=== PATIENT | male | born 1940 | race Caucasian/White ===

== ENCOUNTER 2018-02-16 11:18 | Emergency (ER) | payer SELFPAY ==
[2018-02-16 11:45] VITALS: BP 180/103; PULSE 78; TEMP 97.8; BMI 32.5
--- NOTE | 2018-02-16 13:00 | PDOC ---
History of Present Illness - General Chief Complaint: Urinary Catheter Problem Stated Complaint: URINARY CATHETER PROBLEM Time Seen by Provider: 02/16/18 12:27 History Source: Patient Exam Limitations: Language Barrier (Phone court interpreter used) - History of Present Illness Initial Comments: 02/16/18 12:50 Patient is a 77M with history of HTN and HLD coming in today complaining of leaking from his urinary catheter bag that started this morning. Patient had a eason placed by Dr Isaac for urinary retention and is scheduled for surgery on Mar 09. Patient's daughter states that they went to their urologist's office today and sent to the ED because the urologist was not there. Denies fevers, chills, nausea, vomiting. Denies abdominal and chest pain. Denies headache. Past History - Past Medical History Allergies/Adverse Reactions: Allergies Allergy/AdvReac Type Severity Reaction Status Date / Time No Known Allergies Allergy Verified 02/16/18 11:41 - Suicide/Smoking/Psychosocial Hx Smoking History: Unknown if ever smoked Review of Systems - Review of Systems Comments:: 02/16/18 13:01 GENERAL/CONSTITUTIONAL: No fever or chills. No weakness. HEAD, EYES, EARS, NOSE AND THROAT: No change in vision. No sore throat. CARDIOVASCULAR: No chest pain or shortness of breath RESPIRATORY: No cough, wheezing, or hemoptysis. GASTROINTESTINAL: No nausea, vomiting, diarrhea or constipation. GENITOURINARY: +urinary retention, +eason placed MUSCULOSKELETAL: No joint or muscle swelling or pain. No neck or back pain. SKIN: No rash NEUROLOGIC: No headache, vertigo, loss of consciousness, or change in strength/ sensation. ENDOCRINE: No increased thirst. No abnormal weight change HEMATOLOGIC/LYMPHATIC: No anemia, easy bleeding, or history of blood clots. ALLERGIC/IMMUNOLOGIC: No hives or skin allergy. *Physical Exam - Vital Signs Last Vital Signs Temp Pulse Resp BP Pulse Ox 97.8 F 78 22 H 180/103 H 97 02/16/18 11:44 02/16/18 11:44 02/16/18 11:44 02/16/18 11:44 02/16/18 11:44 - Physical Exam Comments: 02/16/18 13:01 GENERAL: Awake, alert, and fully oriented, in no acute distress HEAD: No signs of trauma, normocephalic, atraumatic EYES: PERRLA, EOMI, sclera anicteric, conjunctiva clear ENT: Auricles normal inspection, hearing grossly normal, nares patent, oropharynx clear without exudates. Moist mucosa NECK: Normal ROM, supple, no lymphadenopathy, JVD, or masses LUNGS: No distress, speaks full sentences, clear to auscultation bilaterally HEART: Regular rate and rhythm, normal S1 and S2, no murmurs, rubs or gallops, peripheral pulses normal and equal bilaterally. ABDOMEN: Soft, nontender, normoactive bowel sounds. No guarding, no rebound. No masses EXTREMITIES: Normal inspection, Normal range of motion, no edema. No clubbing or cyanosis. NEUROLOGICAL: Cranial nerves II through XII grossly intact. Normal speech, normal gait, no focal sensorimotor deficits SKIN: Warm, Dry, normal turgor, no rashes or lesions noted. : Normal external genitalia, eason placed appropriately, draining urine. Urine leaking from bottom of bag. Medical Decision Making - Medical Decision Making 02/16/18 13:02 Patient is 77M with history of HTN and HLD here today complaining of leaking of urine from his leg bag. Vital signs notable for HTN, but asymptomatic. Will have patient follow up with PMD. Bag changed, urine draining. Will discharge with urology and PMD follow up. *DC/Admit/Observation/Transfer Diagnosis at time of Disposition: Problem with urinary catheter - Discharge Dispostion Disposition: HOME Condition at time of disposition: Good Decision to Admit order: No - Referrals Referrals: Los Isaac MD [Primary Care Provider] - - Patient Instructions Printed Discharge Instructions: How to Care for Your Eason Catheter -- Male Additional Instructions: Tu presin sangunea se encontr erna hoy. Por favor, consulte con farris mdico de atencin primaria con respecto a farris presin arterial erna. Por favor noel un seguimiento con farris urlogo con respecto a farris catter de eason - Post Discharge Activity
--- NOTE | 2018-02-16 13:11 | PDOC ---
Attending Attestation - Resident Resident Name: Dwight Gutierrez - ED Attending Attestation I have performed the following: I have examined & evaluated the patient, The case was reviewed & discussed with the resident, I agree w/resident's findings & plan, Exceptions are as noted - HPI HPI: 02/16/18 13:08 77 M with indwelling aeson presenting with leaking eason bag. Denies any other complaints. BP noted to be elevated in ED. Pt states he did not take his BP meds today. Denies any CP/SOB/headache. - Physicial Exam PE: 02/16/18 13:10 GENERAL: Awake, alert, and fully oriented, in no acute distress. HEAD: No signs of trauma EYES: PERRLA, EOMI, sclera anicteric, conjunctiva clear ENT: Auricles normal inspection, hearing grossly normal, nares patent, oropharynx clear without exudates. Moist mucosa NECK: Nontender, no stepoffs, Normal ROM, supple, no lymphadenopathy, JVD, or masses LUNGS: Breath sounds equal, clear to auscultation bilaterally. No wheezes, and no crackles HEART: Regular rate and rhythm, normal S1 and S2, no murmurs, rubs or gallops ABDOMEN: Soft, nontender, normoactive bowel sounds. No guarding, no rebound. No masses EXTREMITIES: Normal range of motion, no edema. No clubbing or cyanosis. No cords, erythema, or tenderness NEUROLOGICAL: Cranial nerves II through XII intact. 5/5 strength and sensation in all extremities, Normal speech, normal gait, normal cerebellar function SKIN: Warm, Dry, normal turgor, no rashes or lesions noted. : Eason in place, draining clear yellow urine - Medical Decision Making 02/16/18 13:10 77 M with leaking eason bag. - Bag replaced Pt also with asymptomatic HTN likely 2/2 not taking his meds today. No s/s of end organ damage. - F/u PMD Pt is well appearing, with normal vitals. Clinically stable for DC at this time. I discussed the physical exam findings, ancillary test results and final diagnoses with the patient. I answered all of the patient's questions. The patient was satisfied with the care received and felt comfortable with the discharge plan and treatment plan. The patient agrees to follow up with the primary care physician within 24-72 hours.
== END 2018-02-16 13:11 | disposition home or self-care (01) ==
LOC: JER 11:18 → SUPCPDRO 11:18 → JER 13:11
PROC: 0T2BX0Z Change Drainage Device in Bladder, External Approach (ICD-10-PCS; principal; 2018-02-16)
DX: T83.038A Leakage of other urinary catheter, initial encounter (principal); I10 Essential (primary) hypertension; E78.5 Hyperlipidemia, unspecified
CPT/HCPCS: 99281-25

== ENCOUNTER 2018-03-09 06:34 | Day surgery (SDC) | payer OTHER ==
[2018-03-06 17:30] VITALS: BMI 28.2
[2018-03-09] MEDS ORDERED: PROPOFOL 20 ML ONE ×2 (08:07→09:33)
[2018-03-09] MEDS ORDERED: MIDAZOLAM HCL 2 MG/2 ML SINGLE DOSE VIAL ONE (08:07)
[2018-03-09] MEDS ORDERED: LIDOCAINE HCL/PF 2% SDV 5ML VIAL ONE (08:07)
[2018-03-09] MEDS ORDERED: ACETAMINOPHEN 500 MG TABLET (FP) PO PRN (09:59)
[2018-03-09] MEDS ORDERED: ONDANSETRON 4 MG/2 ML VIAL IVPUSH PRN (09:59)
[2018-03-09] MEDS ORDERED: oxyCODONE HCL 5 MG TABLET PO PRN (09:59)
[2018-03-09] MEDS ORDERED: LACTATED RINGERS SOLUTION 1,000 ML IV SCH (10:00)
--- NOTE | 2018-03-09 10:05 | OP ---
Operative Note - Note: Operative Date: 03/09/18 Pre-Operative Diagnosis: bph Operation: transurethral resection and vaporization of the prostate with bipolar system Findings: 3+ obstructive prostate Post-Operative Diagnosis: Same as Pre-op Surgeon: Los Isaac Anesthesia: General Specimens Removed: prostatic chips Estimated Blood Loss (mls): 20
[2018-03-09 12:42] VITALS: BP 132/86; PULSE 79; TEMP 97.2
--- NOTE | 2018-03-09 19:05 | OP ---
DATE OF OPERATION: 03/09/2018 PREOPERATIVE DIAGNOSIS: Benign prostatic hypertrophy. POSTOPERATIVE DIAGNOSIS: Benign prostatic hypertrophy. ATTENDING: Mendoza Fields MD ANESTHESIA: General. PROCEDURE: Transurethral resection and vaporization of the prostate utilizing bipolar system. DESCRIPTION OF OPERATION: The patient was brought in the operating room, placed in supine position on the operating room table. Anesthesia and preoperative antibiotics were administered without complications. Patient was then placed in the dorsal lithotomy position and prepped and draped in the usual sterile manner. A resectoscope was placed under visualization into the bladder. The bladder was investigated and noted to have no evidence of stones or neoplasm. A 3+ obstructive prostate was noted. Resection of the prostate in order to debulk the prostate was performed initially. The margins of the resection were the bladder neck proximally and the verumontanum distally. The resection was performed in a 360-degree fashion. The resection was taken down to the level of the pseudocapsule of the prostate. Once this was performed, all prostatic chips were evacuated from the bladder utilizing the Denty's evacuator. At this point, the working element, which had been the loop, was changed to a button. Vaporization and cauterization was then ensured utilizing the button element of the bipolar system. Residual tissue was vaporized, and excellent hemostasis was attained within the prostatic fossa. The margins of the vaporization and cauterization were the bladder neck proximally and the verumontanum distally. This was done again in a 360-degree fashion. Excellent hemostasis was attained. The bladder was investigated and noted to have no evidence of residual prostatic tissue. There was no evidence of perforation of the bladder. The abdomen was soft on examination during the procedure. With excellent hemostasis, the resectoscope was removed, and a Glass catheter placed, 30 mL were inflated into the balloon of the catheter and placed on light traction. Excellent drainage was noted which was light pink in color. The disposition of the patient was to the recovery room. The catheter had been placed to straight drainage. The patient will be observed in the recovery room and the postop area. If the patient continues to do well, he will be discharged home. MENDOZA FIELDS M.D. /[id number]
--- NOTE | 2018-03-11 18:27 | PATH ---
Surgical Pathology Report Patient Name: JESS VIEYRA [facility]. Rec. #: [id number] /Age/Gender: 1940 (Age: 77) / M Account: [id number] Location: [facility] SURGICAL Taken: 03/09/2018 Received: 03/09/2018 Reported: 03/11/2018 Physicians: Los Isaac Specimen(s) Received PROSTATE CHIPS Clinical History Benign prostatic hyperplasia Final Diagnosis PROSTATE, TRANSURETHRAL RESECTION OF PROSTATE: BENIGN PROSTATIC TISSUE WITH MILD CHRONIC INFLAMMATION, FOCAL ACINAR ATROPHY, CYSTIC CHANGES, MILD GLANDULAR AND STROMAL HYPERPLASIA. Electronically Signed Ruby Willis M.D. Gross Description Received in formalin labeled "partial prostate tissue," is a 6 g, 7.0 x 6.3 x 0.5 cm aggregate a fierro, irregular, firm to rubbery portions of tissue, consistent with prostate tissue. The specimen is entirely submitted in 8 cassettes. /03/09/2018 saudi03/09/2018
== END 2018-03-09 12:30 | disposition home or self-care (01) ==
LOC: JASU-SURG 06:34
PROVIDERS: ATTEND Urology
PROC: 0V508ZZ Destruction of Prostate, Via Natural or Artificial Opening Endoscopic (ICD-10-PCS; principal; 2018-03-09 08:00)
DX: N40.0 Benign prostatic hyperplasia without lower urinary tract symptoms (principal); E11.9 Type 2 diabetes mellitus without complications; Z79.84 Long term (current) use of oral hypoglycemic drugs; I10 Essential (primary) hypertension
CPT/HCPCS: 82962; 88305-TC; 94760

== ENCOUNTER 2020-12-06 11:14 | Emergency (ER) | payer OTHER ==
[2020-12-06 11:17] VITALS: PULSE 64; TEMP 97; BMI 29.5
[2020-12-06 12:16] VITALS: BP 176/93
== END 2020-12-06 12:16 | disposition home or self-care (01) ==
LOC: JER 11:14 → JERFT 11:14
DX: J34.1 Cyst and mucocele of nose and nasal sinus (principal)
CPT/HCPCS: 99281-25

== ENCOUNTER 2021-07-27 12:45 | Inpatient (IN) | payer OTHER ==
[2021-07-27 13:14] VITALS: BMI 32.1
[2021-07-27] MEDS ORDERED: ASPIRIN 325 MG TABLET PO SCH (14:15)
[2021-07-27 14:16] LABS: BASO % 0.5 % (0-2.0); EOS % 0.5 % (0-4.5); HEMATOCRIT 45.8 % (35.4-49); LYMPH % 17.2 % (8-40); MCH 26.9 pg (25.7-33.7); MCHC 32.7 g/dl (32.0-35.9); MEAN CELL VOLUME 82.3 fl (80-96); MEAN PLT VOLUME 9.2 fl (7.5-11.1); MONO % 7.2 % (3.8-10.2); NEUT % 74.6 % (42.8-82.8); PLATELET COUNT 252 10^3/uL (134-434); RBC 5.57 M/mm3 (4.00-5.60); RDW 14.6 % (11.9-15.9); WHITE BLOOD COUNT 7.7 K/mm3 (4.0-10.0)
[2021-07-27 14:37] LABS: CALCIUM 8.9 mg/dL (8.5-10.1)
[2021-07-27 14:38] LABS: ALBUMIN 3.7 g/dl (3.4-5.0); BLOOD UREA NITROGEN 14.2 mg/dL (7-18); MAGNESIUM 2.1 mg/dL (1.8-2.4)
[2021-07-27 14:41] LABS: CREATININE 1.3 mg/dL (0.55-1.3)
[2021-07-27 14:42] LABS: TOT PROT 7.5 g/dl (6.4-8.2)
[2021-07-27 15:31] LABS: PH,URINE 8.5 (5.0-8.0); URINE APPEARANCE CLEAR; URINE BILIRUBIN NEGATIVE (NEGATIVE); URINE COLOR YELLOW; URINE GLUCOSE (UA) NEGATIVE (NEGATIVE); URINE KETONE NEGATIVE (NEGATIVE); URINE LEUK ESTERASE NEGATIVE (NEGATIVE); URINE NITRITE NEGATIVE (NEGATIVE); URINE PROTEIN NEGATIVE (NEGATIVE); URINE UROBILINOGEN 0.2 mg/dL (0.2-1.0)
[2021-07-27] MEDS ORDERED: ASPIRIN 325 MG TABLET ONE (15:38)
[2021-07-27] MEDS ORDERED: LABETALOL HCL 5 MG/1 ML (200MG/40ML VIAL) IVPB PRN (19:19)
[2021-07-27] MEDS ORDERED: ATORVASTATIN CA 80 MG TABLET (FP) ONE (21:46)
[2021-07-27] MEDS: ATORVASTATIN CA 80 MG TABLET (FP) PO SCH (21:52)
[2021-07-27] MEDS: INSULIN SLIDING SCALE (NOVOLOG) 1 VIAL SQ SCH (21:52)
[2021-07-28] MEDS: INSULIN SLIDING SCALE (NOVOLOG) 1 VIAL SQ SCH ×4 (06:20→21:27)
[2021-07-28 07:01] LABS: BASO % 0.2 % (0-2.0); EOS % 1.5 % (0-4.5); HEMATOCRIT 44.2 % (35.4-49); HEMOGLOBIN 15.1 GM/dL (11.7-16.9); LYMPH % 19.4 % (8-40); MCH 27.8 pg (25.7-33.7); MCHC 34.1 g/dl (32.0-35.9); MEAN CELL VOLUME 81.7 fl (80-96); MEAN PLT VOLUME 9.1 fl (7.5-11.1); MONO % 9.5 % (3.8-10.2); NEUT % 69.4 % (42.8-82.8); PLATELET COUNT 222 10^3/uL (134-434); RBC 5.41 M/mm3 (4.00-5.60); RDW 14.1 % (11.9-15.9); WHITE BLOOD COUNT 7.2 K/mm3 (4.0-10.0)
[2021-07-28 07:16] LABS: CHOLESTEROL 126 mg/dL (50-200)
[2021-07-28 07:17] LABS: LDL CHOLESTEROL (ONLY SJRH) 84 mg/dL (5-100); TRIGLYCERIDES 152 mg/dL (0-150)
[2021-07-28 07:19] LABS: HDL CHOLESTEROL 32 mg/dL (40-60)
[2021-07-28 07:48] LABS: BLOOD UREA NITROGEN 16.9 mg/dL (7-18); CALCIUM 8.9 mg/dL (8.5-10.1)
[2021-07-28 07:49] LABS: MAGNESIUM 1.9 mg/dL (1.8-2.4)
[2021-07-28 07:52] LABS: CREATININE 1.2 mg/dL (0.55-1.3); PHOSPHOROUS 3.5 mg/dL (2.5-4.9)
[2021-07-28] MEDS: ASPIRIN 81 MG CHEWABLE TABLETS PO SCH (09:44)
[2021-07-28] MEDS: ENOXAPARIN NA (PORCINE) 40 MG/0.4 ML DISP.SYRIN SQ SCH (09:44)
[2021-07-28] MEDS ORDERED: ATORVASTATIN CA 40 MG TABLET (FP) ONE (21:13)
[2021-07-28] MEDS: ATORVASTATIN CA 80 MG TABLET (FP) PO SCH (21:27)
[2021-07-29] MEDS: INSULIN SLIDING SCALE (NOVOLOG) 1 VIAL SQ SCH ×4 (06:02→21:19)
[2021-07-29 06:54] LABS: BASO % 0.3 % (0-2.0); EOS % 1.1 % (0-4.5); HEMOGLOBIN 15.4 GM/dL (11.7-16.9); LYMPH % 21.5 % (8-40); MCH 26.7 pg (25.7-33.7); MCHC 32.7 g/dl (32.0-35.9); MEAN CELL VOLUME 81.7 fl (80-96); MEAN PLT VOLUME 9.2 fl (7.5-11.1); NEUT % 68.1 % (42.8-82.8); PLATELET COUNT 249 10^3/uL (134-434); RBC 5.75 M/mm3 (4.00-5.60); RDW 14.3 % (11.9-15.9); WHITE BLOOD COUNT 7.7 K/mm3 (4.0-10.0)
[2021-07-29 07:04] LABS: CALCIUM 9.4 mg/dL (8.5-10.1)
[2021-07-29 07:05] LABS: BLOOD UREA NITROGEN 18.6 mg/dL (7-18)
[2021-07-29 07:08] LABS: CREATININE 1.2 mg/dL (0.55-1.3)
[2021-07-29] MEDS: ASPIRIN 81 MG CHEWABLE TABLETS PO SCH (09:44)
[2021-07-29] MEDS: ENOXAPARIN NA (PORCINE) 40 MG/0.4 ML DISP.SYRIN SQ SCH (09:44)
[2021-07-29] MEDS ORDERED: HYDROCHLOROTHIAZIDE 50 MG TABLET PO SCH (14:30)
[2021-07-29] MEDS ORDERED: LISINOPRIL 5 MG TABLET PO SCH (14:30)
[2021-07-29] MEDS ORDERED: HYDROCHLOROTHIAZIDE 25 MG TABLET (FP) PO SCH ×2 (14:32→14:33)
[2021-07-29] MEDS: amLODIPine BESYLATE 10 MG TABLET (FP) PO SCH (14:43)
[2021-07-29 15:52] LABS: PH,URINE 7.5 (5.0-8.0); URINE APPEARANCE CLEAR; URINE BILIRUBIN NEGATIVE (NEGATIVE); URINE COLOR YELLOW; URINE GLUCOSE (UA) NEGATIVE (NEGATIVE); URINE KETONE NEGATIVE (NEGATIVE); URINE LEUK ESTERASE NEGATIVE (NEGATIVE); URINE NITRITE NEGATIVE (NEGATIVE); URINE PROTEIN NEGATIVE (NEGATIVE)
[2021-07-29] MEDS ORDERED: ATORVASTATIN CA 40 MG TABLET (FP) ONE (20:55)
[2021-07-29] MEDS: ATORVASTATIN CA 80 MG TABLET (FP) PO SCH (21:14)
[2021-07-30] MEDS: INSULIN SLIDING SCALE (NOVOLOG) 1 VIAL SQ SCH ×4 (06:30→21:01)
[2021-07-30 08:54] LABS: BASO % 0.3 % (0-2.0); EOS % 1.4 % (0-4.5); HEMATOCRIT 47.3 % (35.4-49); HEMOGLOBIN 15.5 GM/dL (11.7-16.9); LYMPH % 21.4 % (8-40); MCH 26.7 pg (25.7-33.7); MCHC 32.8 g/dl (32.0-35.9); MEAN CELL VOLUME 81.5 fl (80-96); MEAN PLT VOLUME 9.1 fl (7.5-11.1); MONO % 9.5 % (3.8-10.2); NEUT % 67.4 % (42.8-82.8); PLATELET COUNT 250 10^3/uL (134-434); RDW 13.9 % (11.9-15.9); WHITE BLOOD COUNT 7.1 K/mm3 (4.0-10.0)
[2021-07-30] MEDS: ENOXAPARIN NA (PORCINE) 40 MG/0.4 ML DISP.SYRIN SQ SCH (09:09)
[2021-07-30] MEDS: ASPIRIN 81 MG CHEWABLE TABLETS PO SCH (09:09)
[2021-07-30] MEDS: amLODIPine BESYLATE 10 MG TABLET (FP) PO SCH (09:09)
[2021-07-30 09:18] LABS: CALCIUM 8.9 mg/dL (8.5-10.1)
[2021-07-30 09:19] LABS: ALBUMIN 3.5 g/dl (3.4-5.0); BLOOD UREA NITROGEN 20.3 mg/dL (7-18); MAGNESIUM 2.3 mg/dL (1.8-2.4)
[2021-07-30 09:21] LABS: PHOSPHOROUS 3.4 mg/dL (2.5-4.9)
[2021-07-30 09:22] LABS: CREATININE 1.3 mg/dL (0.55-1.3)
[2021-07-30 09:23] LABS: TOT PROT 7.2 g/dl (6.4-8.2)
[2021-07-30 10:20] LABS: EPI CELLS 29 /uL (0-25.1); HYALINE CASTS 12 /uL (0-3.1); PH,URINE 5.5 (5.0-8.0); URINE APPEARANCE CLEAR; URINE BACTERIA 1493 /uL (0-1359); URINE BILIRUBIN 1+ (NEGATIVE); URINE COLOR DK YELLOW; URINE GLUCOSE (UA) NEGATIVE (NEGATIVE); URINE KETONE 1+ (NEGATIVE); URINE LEUK ESTERASE 1+ (NEGATIVE); URINE NITRITE NEGATIVE (NEGATIVE); URINE PROTEIN TRACE (NEGATIVE); URINE RBC 7 /uL (0-23.9); URINE WBC 83 /uL (0-25.8)
[2021-07-30] MEDS: metoPROLOL SUCCINATE 25 MG TAB.SR.24H (FP) PO SCH (16:37)
[2021-07-30] MEDS: ATORVASTATIN CA 80 MG TABLET (FP) PO SCH (21:01)
[2021-07-31] MEDS: INSULIN SLIDING SCALE (NOVOLOG) 1 VIAL SQ SCH ×4 (06:43→21:20)
[2021-07-31 08:52] LABS: HEMATOCRIT 47.4 % (35.4-49); HEMOGLOBIN 15.9 GM/dL (11.7-16.9); MCH 27.4 pg (25.7-33.7); MCHC 33.5 g/dl (32.0-35.9); MEAN CELL VOLUME 81.8 fl (80-96); MEAN PLT VOLUME 9.1 fl (7.5-11.1); PLATELET COUNT 245 10^3/uL (134-434); RBC 5.79 M/mm3 (4.00-5.60); RDW 14.4 % (11.9-15.9); WHITE BLOOD COUNT 9.2 K/mm3 (4.0-10.0)
[2021-07-31] MEDS: metoPROLOL SUCCINATE 25 MG TAB.SR.24H (FP) PO SCH (09:03)
[2021-07-31] MEDS: amLODIPine BESYLATE 10 MG TABLET (FP) PO SCH (09:03)
[2021-07-31] MEDS: ASPIRIN 81 MG CHEWABLE TABLETS PO SCH (09:03)
[2021-07-31] MEDS: ENOXAPARIN NA (PORCINE) 40 MG/0.4 ML DISP.SYRIN SQ SCH (09:04)
[2021-07-31 09:13] LABS: CALCIUM 8.7 mg/dL (8.5-10.1)
[2021-07-31 09:14] LABS: ALBUMIN 3.7 g/dl (3.4-5.0); BLOOD UREA NITROGEN 21.4 mg/dL (7-18)
[2021-07-31 09:17] LABS: CREATININE 1.3 mg/dL (0.55-1.3)
[2021-07-31 09:18] LABS: BILIRUBIN,TOTAL 1.6 mg/dL (0.2-1); TOT PROT 7.5 g/dl (6.4-8.2)
[2021-07-31] MEDS ORDERED: MELATONIN 5 MG TABLETS PO PRN (18:37)
[2021-07-31] MEDS ORDERED: ATORVASTATIN CA 40 MG TABLET (FP) ONE (21:18)
[2021-07-31] MEDS: ATORVASTATIN CA 80 MG TABLET (FP) PO SCH (21:20)
[2021-08-01] MEDS: INSULIN SLIDING SCALE (NOVOLOG) 1 VIAL SQ SCH ×4 (06:44→22:23)
[2021-08-01] MEDS ORDERED: CEFTRIAXONE 1 GM in DEXTROSE 5%-WATER - 50 ML IVPB ONE (07:44)
[2021-08-01 08:47] LABS: HEMATOCRIT 46.2 % (35.4-49); HEMOGLOBIN 15.2 GM/dL (11.7-16.9); MCH 26.9 pg (25.7-33.7); MEAN CELL VOLUME 81.4 fl (80-96); MEAN PLT VOLUME 9.5 fl (7.5-11.1); PLATELET COUNT 241 10^3/uL (134-434); RBC 5.67 M/mm3 (4.00-5.60); RDW 14.6 % (11.9-15.9); WHITE BLOOD COUNT 7.7 K/mm3 (4.0-10.0)
[2021-08-01 09:07] LABS: ALBUMIN 3.7 g/dl (3.4-5.0); BLOOD UREA NITROGEN 19.8 mg/dL (7-18); CALCIUM 8.8 mg/dL (8.5-10.1)
[2021-08-01 09:10] LABS: CREATININE 1.1 mg/dL (0.55-1.3)
[2021-08-01 09:11] LABS: BILIRUBIN,TOTAL 1.9 mg/dL (0.2-1)
[2021-08-01] MEDS: amLODIPine BESYLATE 5 MG TABLET (FP) PO SCH (09:51)
[2021-08-01] MEDS: ASPIRIN 81 MG CHEWABLE TABLETS PO SCH (09:51)
[2021-08-01] MEDS: VALSARTAN 80 MG TABLET PO SCH (09:51)
[2021-08-01] MEDS: ENOXAPARIN NA (PORCINE) 40 MG/0.4 ML DISP.SYRIN SQ SCH (09:51)
[2021-08-01] MEDS ORDERED: DEXTROSE 5%-WATER - 50 ML IVPB ONE (09:55)
[2021-08-01] MEDS ORDERED: cefTRIAXone SODIUM 1 GM VIAL ONE (09:55)
[2021-08-01] MEDS ORDERED: AMPICILLIN NA/SULBACTAM NA 1.5 GM in SODIUM CHLORIDE 100 ML IVPB SCH (15:00)
[2021-08-01] MEDS ORDERED: SODIUM CHLORIDE 100 ML IVPB ONE ×2 (16:42→22:15)
[2021-08-01] MEDS ORDERED: AMPICILLIN NA/SULBACTAM NA 1.5 GM VIAL ONE ×2 (16:42→22:15)
[2021-08-01] MEDS: AMPICILLIN NA/SULBACTAM NA 1.5 GM in SODIUM CHLORIDE 100 ML IVPB SCH ×2 (17:04→22:23)
[2021-08-01] MEDS ORDERED: ATORVASTATIN CA 40 MG TABLET (FP) ONE (22:14)
[2021-08-01] MEDS: ATORVASTATIN CA 80 MG TABLET (FP) PO SCH (22:24)
[2021-08-02] MEDS ORDERED: SODIUM CHLORIDE 100 ML IVPB ONE ×4 (02:41→21:02)
[2021-08-02] MEDS ORDERED: AMPICILLIN NA/SULBACTAM NA 1.5 GM VIAL ONE ×4 (02:41→21:02)
[2021-08-02] MEDS: AMPICILLIN NA/SULBACTAM NA 1.5 GM in SODIUM CHLORIDE 100 ML IVPB SCH ×4 (02:46→21:32)
[2021-08-02] MEDS: INSULIN SLIDING SCALE (NOVOLOG) 1 VIAL SQ SCH ×4 (06:50→21:32)
[2021-08-02 07:39] LABS: HEMATOCRIT 46.9 % (35.4-49); HEMOGLOBIN 15.3 GM/dL (11.7-16.9); MCH 26.9 pg (25.7-33.7); MCHC 32.6 g/dl (32.0-35.9); MEAN CELL VOLUME 82.3 fl (80-96); PLATELET COUNT 232 10^3/uL (134-434); RDW 14.2 % (11.9-15.9); WHITE BLOOD COUNT 7.7 K/mm3 (4.0-10.0)
[2021-08-02 08:06] LABS: CALCIUM 8.6 mg/dL (8.5-10.1)
[2021-08-02 08:07] LABS: BLOOD UREA NITROGEN 17.5 mg/dL (7-18)
[2021-08-02 08:08] LABS: ALBUMIN 3.3 g/dl (3.4-5.0)
[2021-08-02 08:10] LABS: CREATININE 1.3 mg/dL (0.55-1.3)
[2021-08-02 08:12] LABS: BILIRUBIN,TOTAL 1.4 mg/dL (0.2-1); TOT PROT 6.8 g/dl (6.4-8.2)
[2021-08-02] MEDS: VALSARTAN 80 MG TABLET PO SCH (09:30)
[2021-08-02] MEDS: ASPIRIN 81 MG CHEWABLE TABLETS PO SCH (09:31)
[2021-08-02] MEDS: ENOXAPARIN NA (PORCINE) 40 MG/0.4 ML DISP.SYRIN SQ SCH (09:31)
[2021-08-02] MEDS: amLODIPine BESYLATE 5 MG TABLET (FP) PO SCH (09:31)
[2021-08-02] MEDS ORDERED: ATORVASTATIN CA 40 MG TABLET (FP) ONE (21:02)
[2021-08-02] MEDS: ATORVASTATIN CA 80 MG TABLET (FP) PO SCH (21:28)
[2021-08-03] MEDS ORDERED: AMPICILLIN NA/SULBACTAM NA 1.5 GM VIAL ONE ×4 (02:12→20:16)
[2021-08-03] MEDS ORDERED: SODIUM CHLORIDE 100 ML IVPB ONE ×4 (02:13→20:16)
[2021-08-03] MEDS: AMPICILLIN NA/SULBACTAM NA 1.5 GM in SODIUM CHLORIDE 100 ML IVPB SCH ×4 (02:19→20:17)
[2021-08-03] MEDS: INSULIN SLIDING SCALE (NOVOLOG) 1 VIAL SQ SCH ×4 (06:44→21:34)
[2021-08-03 07:30] LABS: HEMATOCRIT 45.5 % (35.4-49); HEMOGLOBIN 14.7 GM/dL (11.7-16.9); MCH 26.8 pg (25.7-33.7); MCHC 32.2 g/dl (32.0-35.9); MEAN CELL VOLUME 83.2 fl (80-96); MEAN PLT VOLUME 9.2 fl (7.5-11.1); PLATELET COUNT 246 10^3/uL (134-434); RBC 5.46 M/mm3 (4.00-5.60); RDW 14.1 % (11.9-15.9); WHITE BLOOD COUNT 7.9 K/mm3 (4.0-10.0)
[2021-08-03 08:00] LABS: ALBUMIN 3.5 g/dl (3.4-5.0); BLOOD UREA NITROGEN 19.3 mg/dL (7-18); CALCIUM 8.7 mg/dL (8.5-10.1)
[2021-08-03 08:04] LABS: CREATININE 1.2 mg/dL (0.55-1.3)
[2021-08-03 08:05] LABS: BILIRUBIN,TOTAL 1.7 mg/dL (0.2-1); TOT PROT 6.6 g/dl (6.4-8.2)
[2021-08-03] MEDS: amLODIPine BESYLATE 5 MG TABLET (FP) PO SCH (09:49)
[2021-08-03] MEDS: ASPIRIN 81 MG CHEWABLE TABLETS PO SCH (09:49)
[2021-08-03] MEDS: VALSARTAN 80 MG TABLET PO SCH (09:49)
[2021-08-03] MEDS: ENOXAPARIN NA (PORCINE) 40 MG/0.4 ML DISP.SYRIN SQ SCH (09:49)
[2021-08-03] MEDS ORDERED: amLODIPine BESYLATE 5 MG TABLET (FP) PO ONE (18:00)
[2021-08-03 19:05] VITALS: BP 132/85
[2021-08-03] MEDS ORDERED: ATORVASTATIN CA 40 MG TABLET (FP) ONE (21:27)
[2021-08-03] MEDS: ATORVASTATIN CA 80 MG TABLET (FP) PO SCH (21:33)
[2021-08-03 23:07] VITALS: PULSE 74; TEMP 98.4
== END 2021-08-03 23:30 | DRG 45 ==
LOC: JER 12:45 → JERBED 14:50 → J4S 22:47
PROVIDERS: ADMIT Internal Medicine; ATTEND Internal Medicine
DX: I63.9 Cerebral infarction, unspecified (principal); R29.704 NIHSS score 4; I10 Essential (primary) hypertension; E11.9 Type 2 diabetes mellitus without complications; G81.91 Hemiplegia, unspecified affecting right dominant side; N39.0 Urinary tract infection, site not specified; R47.01 Aphasia; I47.2 Ventricular tachycardia; F03.90 Unspecified dementia, unspecified severity, without behavioral disturbance, psychotic disturbance, mood disturbance, and anxiety; E78.5 Hyperlipidemia, unspecified; R50.9 Fever, unspecified; I13.0 Hypertensive heart and chronic kidney disease with heart failure and stage 1 through stage 4 chronic kidney disease, or unspecified chronic kidney disease; E11.22 Type 2 diabetes mellitus with diabetic chronic kidney disease; N18.9 Chronic kidney disease, unspecified; I50.30 Unspecified diastolic (congestive) heart failure
CPT/HCPCS: 36415; 70450-TC; 70551-TC; 71045-TC-FY; 80048; 80053; 80061; 81003; 82962; 83036; 83735; 84100; 84436; 84443; 84484; 85025; 85027; 86850; 86900; 86901; 87040; 87077; 87086; 87186; 93005; 93010; 93306-TC; 93880-TC; 97116-GP; 97161-GP; 99285-25; C9803-CS; U0003; U0005

== ENCOUNTER 2021-11-02 07:36 | Inpatient (IN) | payer OTHER ==
[2021-11-02] MEDS ORDERED: ACETAMINOPHEN 1000 MG/100 ML BAG IVPB ONE (07:51)
[2021-11-02] MEDS ORDERED: ACETAMINOPHEN 500 MG TABLET (FP) ONE (08:10)
[2021-11-02 08:19] LABS: VENOUS BASE EXCESS -5.7 mmol/L (-2-2); VENOUS O2 SATURATION 21.7 % (70-80); VENOUS PCO2 44.7 mmHg (38-52); VENOUS PH 7.287 (7.310-7.410)
[2021-11-02] MEDS ORDERED: ACETAMINOPHEN INJECTION 100 ML IVPB ONE (08:24)
[2021-11-02 08:43] LABS: CHLORIDE 98 mmol/L (98-107); SODIUM 136 mmol/L (136-145)
[2021-11-02 08:45] LABS: CALCIUM 8.9 mg/dL (8.5-10.1); GLUCOSE,RANDOM 92 mg/dL (74-106)
[2021-11-02 08:46] LABS: ALBUMIN 3.6 g/dl (3.4-5.0); ANION GAP 17 MMOL/L (8-16); BLOOD UREA NITROGEN 62.7 mg/dL (7-18); CO2 22 mmol/L (21-32); LIPASE 142 U/L (73-393)
[2021-11-02 08:48] LABS: SGPT/ALT 41 U/L (13-61)
[2021-11-02 08:49] LABS: SGOT/AST 20 U/L (15-37)
[2021-11-02 08:50] LABS: BILIRUBIN,TOTAL 0.7 mg/dL (0.2-1)
[2021-11-02 08:51] LABS: ALK PHOS 84 U/L (45-117)
[2021-11-02 08:53] LABS: LACTIC ACID 5.2 mmol/L (0.4-2.0); N-TERMINAL BNP 366.1 pg/ml (5-450)
[2021-11-02] MEDS ORDERED: LACTATED RINGERS SOLUTION 1000 ML INFUS.BAG IV ONE (09:02)
[2021-11-02 09:11] LABS: CREATININE 13.5 mg/dL (0.55-1.3)
[2021-11-02 09:20] LABS: HEMATOCRIT 43.7 % (35.4-49); HEMOGLOBIN 14.2 GM/dL (11.7-16.9); MCH 26.5 pg (25.7-33.7); MCHC 32.5 g/dl (32.0-35.9); MEAN CELL VOLUME 81.6 fl (80-96); MEAN PLT VOLUME 8.6 fl (7.5-11.1); PLATELET COUNT 199 10^3/uL (134-434); RBC 5.36 M/mm3 (4.00-5.60); RDW 15.5 % (11.9-15.9); WHITE BLOOD COUNT 9.6 K/mm3 (4.0-10.0)
[2021-11-02] MEDS ORDERED: VANCOMYCIN 1 GM in D5W (PRE-DOCKED) 1,000 MG/250 ML IVPB ONE (09:23)
[2021-11-02] MEDS ORDERED: CEFEPIME HCL/D5W 2 GM/50 ML BAG IVPB ONE (09:23)
[2021-11-02] MEDS ORDERED: VANCOMYCIN 1 GRAM (PRE-DOCKED) 1,000 MG/250 ML BAG IVPB ONE (09:42)
[2021-11-02] MEDS ORDERED: CEFEPIME 2 GM/100 ML BAG IVPB ONE (09:42)
[2021-11-02 10:57] LABS: ANISOCYTOSIS 0; MACROCYTOSIS 0
[2021-11-02 11:24] LABS: URINE APPEARANCE TURBID; URINE BILIRUBIN NEGATIVE (NEGATIVE); URINE COLOR PINK; URINE GLUCOSE (UA) NEGATIVE (NEGATIVE)
[2021-11-02 11:25] LABS: URINE PROTEIN 3+ (NEGATIVE); URINE UROBILINOGEN 0.2 mg/dL (0.2-1.0)
[2021-11-02 12:32] LABS: EPI CELLS NONE SEEN /uL (0-25.1); URINE BACTERIA MODERATE /uL (0-1359); URINE RBC >100 /uL (0-23.9); URINE WBC >100 /uL (0-25.8)
[2021-11-02 13:02] LABS: VENOUS BASE EXCESS -0.8 mmol/L (-2-2); VENOUS O2 SATURATION 47.2 % (70-80); VENOUS PCO2 43.1 mmHg (38-52); VENOUS PH 7.373 (7.310-7.410)
[2021-11-02 13:05] LABS: ANION GAP 1 MMOL/L (8-16); BLOOD UREA NITROGEN 55.8 mg/dL (7-18); CHLORIDE 95 mmol/L (98-107); CO2 24 mmol/L (21-32); CREATININE 10.1 mg/dL (0.55-1.3); GLUCOSE,RANDOM 52 mg/dL (74-106); SODIUM 120 mmol/L (136-145)
[2021-11-02 14:47] LABS: ANION GAP 11 MMOL/L (8-16); BLOOD UREA NITROGEN 51.2 mg/dL (7-18); CALCIUM 8.7 mg/dL (8.5-10.1); CHLORIDE 108 mmol/L (98-107); CO2 21 mmol/L (21-32); CREATININE 8.7 mg/dL (0.55-1.3); GLUCOSE,RANDOM 47 mg/dL (74-106); SODIUM 141 mmol/L (136-145)
[2021-11-02] MEDS ORDERED: DEXTROSE 50%-WATER - 25 GM/50 ML VIAL IVPUSH ONE ×2 (14:53→18:18)
[2021-11-02] MEDS ORDERED: DEXTROSE 50%-WATER 25 GM/50 ML DISP.SYRIN ONE (14:54)
[2021-11-02] MEDS ORDERED: ARTIFICIAL TEARS (POLYVINYL ALCOHOL) OPTH DROPS OU PRN (22:00)
[2021-11-02] MEDS: HEPARIN NA (PORCINE) 5,000 UNITS/ML 1ML VIAL SQ SCH (22:00)
[2021-11-02] MEDS: DEXTROSE 5%-0.45% SALINE 1,000 ML IV SCH (23:14)
[2021-11-03] MEDS: HEPARIN NA (PORCINE) 5,000 UNITS/ML 1ML VIAL SQ SCH ×3 (05:44→21:55)
[2021-11-03] MEDS ORDERED: VALSARTAN 80 MG TABLET PO SCH (10:00)
[2021-11-03 10:07] LABS: BASO % 0.2 % (0-2.0); EOS % 2.2 % (0-4.5); HEMATOCRIT 36.9 % (35.4-49); HEMOGLOBIN 12.1 GM/dL (11.7-16.9); LYMPH % 5.7 % (8-40); MCHC 32.7 g/dl (32.0-35.9); MEAN CELL VOLUME 79.7 fl (80-96); MEAN PLT VOLUME 8.7 fl (7.5-11.1); MONO % 6.5 % (3.8-10.2); NEUT % 85.4 % (42.8-82.8); PLATELET COUNT 170 10^3/uL (134-434); RBC 4.63 M/mm3 (4.00-5.60); RDW 15.5 % (11.9-15.9); WHITE BLOOD COUNT 16.6 K/mm3 (4.0-10.0)
[2021-11-03] MEDS ORDERED: DEXTROSE 5%-WATER - 50 ML IVPB ONE (10:22)
[2021-11-03] MEDS ORDERED: cefTRIAXone SODIUM 1 GM VIAL ONE (10:22)
[2021-11-03 10:23] LABS: CALCIUM 8.3 mg/dL (8.5-10.1)
[2021-11-03] MEDS: CEFTRIAXONE 1 GM in DEXTROSE 5%-WATER - 50 ML IVPB SCH (10:23)
[2021-11-03 10:24] LABS: MAGNESIUM 2.4 mg/dL (1.8-2.4)
[2021-11-03] MEDS: ASPIRIN 81 MG CHEWABLE TABLETS PO SCH (10:24)
[2021-11-03] MEDS: amLODIPine BESYLATE 5 MG TABLET (FP) PO SCH (10:24)
[2021-11-03 10:27] LABS: CREATININE 1.9 mg/dL (0.55-1.3); PHOSPHOROUS 3.2 mg/dL (2.5-4.9)
[2021-11-03 10:28] LABS: BILIRUBIN,TOTAL 0.7 mg/dL (0.2-1); TOT PROT 6.3 g/dl (6.4-8.2)
[2021-11-03 10:35] LABS: BLOOD UREA NITROGEN 21.7 mg/dL (7-18)
[2021-11-03] MEDS: DEXTROSE 5%-0.45% SALINE 1,000 ML IV SCH (12:23)
[2021-11-03] MEDS: INSULIN SLIDING SCALE (NOVOLOG) 1 VIAL SQ SCH (21:55)
[2021-11-04] MEDS: DEXTROSE 5%-0.45% SALINE 1,000 ML IV SCH ×2 (05:04→17:08)
[2021-11-04] MEDS: HEPARIN NA (PORCINE) 5,000 UNITS/ML 1ML VIAL SQ SCH ×3 (05:18→21:15)
[2021-11-04] MEDS: INSULIN SLIDING SCALE (NOVOLOG) 1 VIAL SQ SCH ×4 (06:19→21:15)
[2021-11-04] MEDS ORDERED: DEXTROSE 5%-WATER - 50 ML IVPB ONE (09:07)
[2021-11-04] MEDS ORDERED: cefTRIAXone SODIUM 1 GM VIAL ONE (09:07)
[2021-11-04] MEDS: amLODIPine BESYLATE 5 MG TABLET (FP) PO SCH (09:08)
[2021-11-04] MEDS: CEFTRIAXONE 1 GM in DEXTROSE 5%-WATER - 50 ML IVPB SCH (09:08)
[2021-11-04] MEDS: ASPIRIN 81 MG CHEWABLE TABLETS PO SCH (09:09)
[2021-11-04 09:44] LABS: BASO % 0.4 % (0-2.0); EOS % 2.5 % (0-4.5); LYMPH % 13.7 % (8-40); MCH 26.6 pg (25.7-33.7); MCHC 33.4 g/dl (32.0-35.9); MEAN CELL VOLUME 79.5 fl (80-96); MEAN PLT VOLUME 8.6 fl (7.5-11.1); NEUT % 73.4 % (42.8-82.8); PLATELET COUNT 210 10^3/uL (134-434); RDW 15.8 % (11.9-15.9)
[2021-11-04 10:05] LABS: ALBUMIN 3.1 g/dl (3.4-5.0); BLOOD UREA NITROGEN 9.9 mg/dL (7-18); CALCIUM 8.7 mg/dL (8.5-10.1)
[2021-11-04 10:07] LABS: CREATININE 0.9 mg/dL (0.55-1.3)
[2021-11-04 10:10] LABS: BILIRUBIN,TOTAL 0.6 mg/dL (0.2-1); TOT PROT 6.9 g/dl (6.4-8.2)
[2021-11-05] MEDS: DEXTROSE 5%-0.45% SALINE 1,000 ML IV SCH (05:14)
[2021-11-05] MEDS: HEPARIN NA (PORCINE) 5,000 UNITS/ML 1ML VIAL SQ SCH ×3 (06:04→22:03)
[2021-11-05] MEDS: INSULIN SLIDING SCALE (NOVOLOG) 1 VIAL SQ SCH ×4 (06:04→22:04)
[2021-11-05] MEDS ORDERED: DEXTROSE 5%-WATER 100 ML IVPB ONE (09:35)
[2021-11-05] MEDS: ASPIRIN 81 MG CHEWABLE TABLETS PO SCH (09:39)
[2021-11-05] MEDS: amLODIPine BESYLATE 5 MG TABLET (FP) PO SCH (09:40)
[2021-11-05] MEDS ORDERED: CEFTRIAXONE 2 GM in DEXTROSE 5%-WATER 2 GM/50 ML BAG IVPB SCH (10:00)
[2021-11-05] MEDS: CEFTRIAXONE 2 GM in DEXTROSE 5%-WATER 2 GM/100 ML BAG IVPB SCH (11:32)
[2021-11-05 11:36] LABS: BASO % 0.5 % (0-2.0); EOS % 2.2 % (0-4.5); HEMATOCRIT 40.9 % (35.4-49); HEMOGLOBIN 13.3 GM/dL (11.7-16.9); LYMPH % 12.8 % (8-40); MCH 26.2 pg (25.7-33.7); MCHC 32.5 g/dl (32.0-35.9); MEAN CELL VOLUME 80.6 fl (80-96); MEAN PLT VOLUME 8.6 fl (7.5-11.1); NEUT % 78.5 % (42.8-82.8); PLATELET COUNT 256 10^3/uL (134-434); RBC 5.07 M/mm3 (4.00-5.60); RDW 15.2 % (11.9-15.9); WHITE BLOOD COUNT 10.3 K/mm3 (4.0-10.0)
[2021-11-05 12:45] LABS: CALCIUM 8.9 mg/dL (8.5-10.1)
[2021-11-05 12:47] LABS: ALBUMIN 3.1 g/dl (3.4-5.0); BLOOD UREA NITROGEN 6.7 mg/dL (7-18); MAGNESIUM 1.9 mg/dL (1.8-2.4)
[2021-11-05 12:50] LABS: CREATININE 0.9 mg/dL (0.55-1.3)
[2021-11-05 12:51] LABS: BILIRUBIN,TOTAL 0.6 mg/dL (0.2-1)
[2021-11-05 12:52] LABS: TOT PROT 7.1 g/dl (6.4-8.2)
[2021-11-05] MEDS ORDERED: TAMSULOSIN HCL 0.4 MG CAP PO ONE (13:30)
[2021-11-05] MEDS: VALSARTAN 80 MG TABLET PO SCH (15:49)
[2021-11-05] MEDS: ATORVASTATIN CA 80 MG TABLET (FP) PO SCH (22:04)
[2021-11-06] MEDS: HEPARIN NA (PORCINE) 5,000 UNITS/ML 1ML VIAL SQ SCH ×3 (06:00→21:21)
[2021-11-06] MEDS ORDERED: DEXTROSE 5%-WATER 100 ML IVPB ONE (08:56)
[2021-11-06] MEDS: VALSARTAN 80 MG TABLET PO SCH (10:15)
[2021-11-06] MEDS: amLODIPine BESYLATE 5 MG TABLET (FP) PO SCH (10:15)
[2021-11-06] MEDS: ASPIRIN 81 MG CHEWABLE TABLETS PO SCH (10:15)
[2021-11-06] MEDS: CEFTRIAXONE 2 GM in DEXTROSE 5%-WATER 2 GM/100 ML BAG IVPB SCH (10:15)
[2021-11-06 11:08] LABS: BASO % 0.6 % (0-2.0); EOS % 3.6 % (0-4.5); HEMATOCRIT 43.9 % (35.4-49); HEMOGLOBIN 14.4 GM/dL (11.7-16.9); LYMPH % 18.1 % (8-40); MCH 26.4 pg (25.7-33.7); MCHC 32.9 g/dl (32.0-35.9); MEAN CELL VOLUME 80.2 fl (80-96); MEAN PLT VOLUME 8.7 fl (7.5-11.1); MONO % 8.6 % (3.8-10.2); NEUT % 69.1 % (42.8-82.8); PLATELET COUNT 305 10^3/uL (134-434); RBC 5.47 M/mm3 (4.00-5.60); RDW 15.9 % (11.9-15.9); WHITE BLOOD COUNT 8.7 K/mm3 (4.0-10.0)
[2021-11-06 11:42] LABS: ALBUMIN 3.4 g/dl (3.4-5.0); CALCIUM 9.2 mg/dL (8.5-10.1)
[2021-11-06 11:43] LABS: BLOOD UREA NITROGEN 10.8 mg/dL (7-18); MAGNESIUM 1.9 mg/dL (1.8-2.4)
[2021-11-06 11:45] LABS: CREATININE 0.9 mg/dL (0.55-1.3); PHOSPHOROUS 3.3 mg/dL (2.5-4.9)
[2021-11-06 11:46] LABS: BILIRUBIN,TOTAL 0.9 mg/dL (0.2-1)
[2021-11-06 11:47] LABS: TOT PROT 7.3 g/dl (6.4-8.2)
[2021-11-06] MEDS: INSULIN SLIDING SCALE (NOVOLOG) 1 VIAL SQ SCH ×3 (15:11→23:00)
[2021-11-06] MEDS: ATORVASTATIN CA 80 MG TABLET (FP) PO SCH (21:22)
[2021-11-07] MEDS: HEPARIN NA (PORCINE) 5,000 UNITS/ML 1ML VIAL SQ SCH ×3 (05:24→21:47)
[2021-11-07] MEDS: INSULIN SLIDING SCALE (NOVOLOG) 1 VIAL SQ SCH ×5 (06:24→22:46)
[2021-11-07 09:33] LABS: HEMATOCRIT 42.8 % (35.4-49); MCH 26.3 pg (25.7-33.7); MCHC 32.6 g/dl (32.0-35.9); MEAN CELL VOLUME 80.6 fl (80-96); MEAN PLT VOLUME 8.3 fl (7.5-11.1); PLATELET COUNT 308 10^3/uL (134-434); RBC 5.31 M/mm3 (4.00-5.60); RDW 15.7 % (11.9-15.9); WHITE BLOOD COUNT 8.8 K/mm3 (4.0-10.0)
[2021-11-07 10:15] LABS: ANISOCYTOSIS 0; HELMET CELLS 0; HOWELL-JOLLY BODIES 0; MACROCYTOSIS 0; OVALOCYTE 0; ROULEAU 0; SICKELED CELLS 0; TARGET CELLS 0; TEAR DROP CELLS 0; TOXIC GRANULATION 0
[2021-11-07] MEDS ORDERED: DEXTROSE 5%-WATER 100 ML IVPB ONE (10:25)
[2021-11-07] MEDS: CEFTRIAXONE 2 GM in DEXTROSE 5%-WATER 2 GM/100 ML BAG IVPB SCH ×2 (10:35→16:26)
[2021-11-07 10:44] LABS: BLOOD UREA NITROGEN 14.2 mg/dL (7-18)
[2021-11-07 10:48] LABS: ALBUMIN 3.2 g/dl (3.4-5.0); BILIRUBIN,TOTAL 0.7 mg/dL (0.2-1); CALCIUM 8.8 mg/dL (8.5-10.1); CREATININE 0.9 mg/dL (0.55-1.3); MAGNESIUM 2.1 mg/dL (1.8-2.4); PHOSPHOROUS 3.5 mg/dL (2.5-4.9)
[2021-11-07] MEDS: amLODIPine BESYLATE 5 MG TABLET (FP) PO SCH (11:13)
[2021-11-07] MEDS: VALSARTAN 80 MG TABLET PO SCH (11:13)
[2021-11-07] MEDS: ASPIRIN 81 MG CHEWABLE TABLETS PO SCH (11:13)
[2021-11-07] MEDS ORDERED: VALSARTAN 160 MG TABLET PO SCH (12:27)
[2021-11-07] MEDS ORDERED: cefTRIAXone SODIUM 1 GM VIAL IVPB ONE (13:30)
[2021-11-07] MEDS ORDERED: ARTIFICIAL TEARS (POLYVINYL ALCOHOL) OPTH DROPS OU PRN (14:36)
[2021-11-07] MEDS: ATORVASTATIN CA 80 MG TABLET (FP) PO SCH (21:48)
[2021-11-08] MEDS: INSULIN SLIDING SCALE (NOVOLOG) 1 VIAL SQ SCH ×4 (06:29→23:15)
[2021-11-08] MEDS: HEPARIN NA (PORCINE) 5,000 UNITS/ML 1ML VIAL SQ SCH ×2 (06:29→15:25)
[2021-11-08] MEDS ORDERED: amLODIPine BESYLATE 5 MG TABLET (FP) PO SCH (10:00)
[2021-11-08] MEDS ORDERED: DEXTROSE 5%-WATER 100 ML IVPB ONE (10:07)
[2021-11-08 10:42] LABS: HEMATOCRIT 39.8 % (35.4-49); HEMOGLOBIN 12.9 GM/dL (11.7-16.9); MCH 26.2 pg (25.7-33.7); MCHC 32.5 g/dl (32.0-35.9); MEAN CELL VOLUME 80.5 fl (80-96); MEAN PLT VOLUME 8.6 fl (7.5-11.1); PLATELET COUNT 303 10^3/uL (134-434); RBC 4.94 M/mm3 (4.00-5.60); RDW 15.5 % (11.9-15.9); WHITE BLOOD COUNT 11.6 K/mm3 (4.0-10.0)
[2021-11-08] MEDS: CEFTRIAXONE 2 GM in DEXTROSE 5%-WATER 2 GM/100 ML BAG IVPB SCH (10:46)
[2021-11-08] MEDS: VALSARTAN 160 MG TABLET PO SCH (10:46)
[2021-11-08] MEDS: amLODIPine BESYLATE 10 MG TABLET (FP) PO SCH (10:46)
[2021-11-08 11:10] LABS: BLOOD UREA NITROGEN 16.9 mg/dL (7-18)
[2021-11-08 11:11] LABS: ALBUMIN 3.2 g/dl (3.4-5.0); CALCIUM 8.5 mg/dL (8.5-10.1); MAGNESIUM 2.1 mg/dL (1.8-2.4)
[2021-11-08 11:15] LABS: PHOSPHOROUS 3.2 mg/dL (2.5-4.9); TOT PROT 6.8 g/dl (6.4-8.2)
[2021-11-08 12:36] VITALS: BMI 27.3
[2021-11-08] MEDS: ATORVASTATIN CA 80 MG TABLET (FP) PO SCH (23:15)
[2021-11-09] MEDS: INSULIN SLIDING SCALE (NOVOLOG) 1 VIAL SQ SCH ×4 (06:17→21:44)
[2021-11-09] MEDS ORDERED: DEXTROSE 5%-WATER 100 ML IVPB ONE (11:32)
[2021-11-09] MEDS: amLODIPine BESYLATE 10 MG TABLET (FP) PO SCH (11:35)
[2021-11-09] MEDS: VALSARTAN 160 MG TABLET PO SCH (11:35)
[2021-11-09] MEDS: CEFTRIAXONE 2 GM in DEXTROSE 5%-WATER 2 GM/100 ML BAG IVPB SCH (11:35)
[2021-11-09] MEDS: ENOXAPARIN NA (PORCINE) 40 MG/0.4 ML DISP.SYRIN SQ SCH (11:36)
[2021-11-09 12:48] LABS: ALBUMIN 3.5 g/dl (3.4-5.0); CALCIUM 8.9 mg/dL (8.5-10.1)
[2021-11-09 12:49] LABS: BLOOD UREA NITROGEN 18.9 mg/dL (7-18); MAGNESIUM 2.2 mg/dL (1.8-2.4)
[2021-11-09 12:51] LABS: PHOSPHOROUS 3.3 mg/dL (2.5-4.9)
[2021-11-09 12:52] LABS: CREATININE 0.9 mg/dL (0.55-1.3)
[2021-11-09 12:54] LABS: BILIRUBIN,TOTAL 1.1 mg/dL (0.2-1); TOT PROT 7.3 g/dl (6.4-8.2)
[2021-11-09 14:25] LABS: BASO % 0.4 % (0-2.0); HEMATOCRIT 42.7 % (35.4-49); HEMOGLOBIN 13.8 GM/dL (11.7-16.9); MCH 26.2 pg (25.7-33.7); MCHC 32.3 g/dl (32.0-35.9); MEAN PLT VOLUME 8.3 fl (7.5-11.1); MONO % 6.7 % (3.8-10.2); NEUT % 72.9 % (42.8-82.8); PLATELET COUNT 334 10^3/uL (134-434); RBC 5.28 M/mm3 (4.00-5.60); RDW 15.8 % (11.9-15.9); WHITE BLOOD COUNT 10.6 K/mm3 (4.0-10.0)
[2021-11-09] MEDS: ATORVASTATIN CA 80 MG TABLET (FP) PO SCH (21:32)
[2021-11-10] MEDS: INSULIN SLIDING SCALE (NOVOLOG) 1 VIAL SQ SCH ×2 (06:33→12:23)
[2021-11-10 09:01] LABS: BASO % 0.4 % (0-2.0); EOS % 4.4 % (0-4.5); HEMOGLOBIN 13.6 GM/dL (11.7-16.9); LYMPH % 18.3 % (8-40); MCH 26.3 pg (25.7-33.7); MCHC 32.4 g/dl (32.0-35.9); MEAN PLT VOLUME 8.3 fl (7.5-11.1); MONO % 8.2 % (3.8-10.2); NEUT % 68.7 % (42.8-82.8); PLATELET COUNT 323 10^3/uL (134-434); RBC 5.18 M/mm3 (4.00-5.60)
[2021-11-10 09:23] LABS: ALBUMIN 3.3 g/dl (3.4-5.0); CALCIUM 8.8 mg/dL (8.5-10.1); MAGNESIUM 2.1 mg/dL (1.8-2.4)
[2021-11-10 09:26] LABS: CREATININE 0.9 mg/dL (0.55-1.3); PHOSPHOROUS 3.3 mg/dL (2.5-4.9)
[2021-11-10 09:28] LABS: BILIRUBIN,TOTAL 0.7 mg/dL (0.2-1)
[2021-11-10] MEDS: amLODIPine BESYLATE 10 MG TABLET (FP) PO SCH (10:00)
[2021-11-10] MEDS: ENOXAPARIN NA (PORCINE) 40 MG/0.4 ML DISP.SYRIN SQ SCH (10:00)
[2021-11-10] MEDS: VALSARTAN 160 MG TABLET PO SCH (10:00)
[2021-11-10 15:29] VITALS: BP 145/92; PULSE 74; TEMP 98.4
== END 2021-11-10 16:00 | disposition home or self-care (01) | DRG 710 ==
LOC: JER 07:36 → JERBED 13:22 → J5S 19:53
PROVIDERS: ADMIT Internal Medicine; ATTEND Internal Medicine
PROC: 0V508ZZ Destruction of Prostate, Via Natural or Artificial Opening Endoscopic (ICD-10-PCS; principal; 2021-11-07 12:00)
DX: A41.51 Sepsis due to Escherichia coli [E. coli] (principal); E11.649 Type 2 diabetes mellitus with hypoglycemia without coma; N17.9 Acute kidney failure, unspecified; I69.351 Hemiplegia and hemiparesis following cerebral infarction affecting right dominant side; F03.90 Unspecified dementia, unspecified severity, without behavioral disturbance, psychotic disturbance, mood disturbance, and anxiety; J44.9 Chronic obstructive pulmonary disease, unspecified; B96.20 Unspecified Escherichia coli [E. coli] as the cause of diseases classified elsewhere; D72.829 Elevated white blood cell count, unspecified; E78.5 Hyperlipidemia, unspecified; I10 Essential (primary) hypertension; I69.320 Aphasia following cerebral infarction; N13.9 Obstructive and reflux uropathy, unspecified; N39.0 Urinary tract infection, site not specified; N40.1 Benign prostatic hyperplasia with lower urinary tract symptoms; R33.9 Retention of urine, unspecified; N28.1 Cyst of kidney, acquired; R74.01 Elevation of levels of liver transaminase levels
CPT/HCPCS: 36415; 71045-TC-FY; 74018-TC-FY; 74176-TC; 76705-TC; 76775-TC; 80048; 80053; 81003; 82010; 82550; 82553; 82803; 82962; 83605; 83690; 83735; 83880; 84100; 84153; 84484; 85025; 85027; 86850; 86900; 86901; 87040; 87086; 87186; 88305-TC; 93005; 93010; 94760; 94761; 97116-GP; 97162-GP; 99285-25; C9803-CS; J1644; U0003; U0005

== ENCOUNTER 2022-12-30 14:39 | Inpatient (IN) | payer MEDICARE, OTHER ==
[2022-12-30 16:20] LABS: HEMATOCRIT 46.5 % (35.4-49); HEMOGLOBIN 15.3 GM/dL (11.7-16.9); MCH 26.6 pg (25.7-33.7); MCHC 32.9 g/dl (32.0-35.9); MEAN CELL VOLUME 80.8 fl (80-96); MEAN PLT VOLUME 8.5 fl (7.5-11.1); PLATELET COUNT 213 10^3/uL (134-434); RBC 5.76 M/mm3 (4.00-5.60); RDW 14.3 % (11.9-15.9); WHITE BLOOD COUNT 12.3 K/mm3 (4.0-10.0)
[2022-12-30 16:24] LABS: EPI CELLS 1 /uL (0-25.1); HYALINE CASTS 0 /uL (0-3.1); PH,URINE 7.5 (5.0-8.0); URINE APPEARANCE CLEAR; URINE BACTERIA 1535 /uL (0-1359); URINE BILIRUBIN NEGATIVE (NEGATIVE); URINE COLOR YELLOW; URINE GLUCOSE (UA) NEGATIVE (NEGATIVE); URINE KETONE NEGATIVE (NEGATIVE); URINE LEUK ESTERASE 1+ (NEGATIVE); URINE NITRITE NEGATIVE (NEGATIVE); URINE PROTEIN TRACE (NEGATIVE); URINE RBC 105 /uL (0-23.9); URINE WBC 249 /uL (0-25.8)
[2022-12-30 16:27] LABS: INR 1.12 (0.83-1.09)
[2022-12-30 16:30] LABS: ACTIVATED PTT 27.5 SECONDS (25.2-36.5)
[2022-12-30 16:54] LABS: POTASSIUM 4.1 mmol/L (3.5-5.1)
[2022-12-30 16:56] LABS: CALCIUM 9.4 mg/dL (8.5-10.1)
[2022-12-30 16:57] LABS: ALBUMIN 4.2 g/dl (3.4-5.0); BLOOD UREA NITROGEN 27.5 mg/dL (7-18)
[2022-12-30 17:01] LABS: CREATININE 1.4 mg/dL (0.55-1.3)
[2022-12-30 17:02] LABS: BILIRUBIN,TOTAL 2.3 mg/dL (0.2-1); TOT PROT 8.1 g/dl (6.4-8.2)
[2022-12-30] MEDS ORDERED: CEFTRIAXONE 1 GM in DEXTROSE 5%-WATER - 100 ML IVPB ONE (18:16)
[2022-12-31] MEDS ORDERED: SODIUM CHLORIDE 1,000 ML IV SCH (00:15)
[2022-12-31] MEDS ORDERED: ACETAMINOPHEN 1000 MG/100 ML BAG IVPB ONE (01:55)
[2022-12-31] MEDS ORDERED: ACETAMINOPHEN INJECTION 100 ML IVPB ONE (02:14)
[2022-12-31] MEDS ORDERED: HEPARIN NA (PORCINE) 5,000 UNITS/ML 1ML VIAL ONE (06:32)
[2022-12-31] MEDS: HEPARIN NA (PORCINE) 5,000 UNITS/ML 1ML VIAL SQ SCH ×3 (06:34→21:43)
[2022-12-31] MEDS: INSULIN SLIDING SCALE (NOVOLOG) 1 VIAL SQ SCH ×4 (07:58→21:42)
[2022-12-31] MEDS ORDERED: CEFTRIAXONE 1 GM/50 ML BAG ONE (09:59)
[2022-12-31] MEDS ORDERED: CEFTRIAXONE 1 GM in DEXTROSE 5%-WATER - 50 ML IVPB SCH (10:00)
[2022-12-31] MEDS ORDERED: ENOXAPARIN NA (PORCINE) 40 MG/0.4 ML DISP.SYRIN SQ SCH (10:00)
[2022-12-31] MEDS: amLODIPine BESYLATE 5 MG TABLET (FP) PO SCH (10:13)
[2022-12-31] MEDS ORDERED: ASPIRIN 81 MG CHEWABLE TABLETS ONE (15:50)
[2022-12-31] MEDS: ASPIRIN 81 MG CHEWABLE TABLETS PO SCH (15:52)
[2022-12-31] MEDS: ACETAMINOPHEN 325 MG TABLET (FP) PO PRN (15:57)
[2022-12-31 17:47] VITALS: BMI 31.6
[2022-12-31] MEDS: ATORVASTATIN CA 80 MG TABLET (FP) PO SCH (21:43)
[2023-01-01] MEDS: HEPARIN NA (PORCINE) 5,000 UNITS/ML 1ML VIAL SQ SCH ×3 (06:15→21:33)
[2023-01-01] MEDS: INSULIN SLIDING SCALE (NOVOLOG) 1 VIAL SQ SCH ×4 (06:33→21:35)
[2023-01-01] MEDS: ACETAMINOPHEN 325 MG TABLET (FP) PO PRN (06:37)
[2023-01-01 10:06] LABS: BASO % 0.2 % (0-2.0); EOS % 1.5 % (0-4.5); HEMATOCRIT 41.8 % (35.4-49); LYMPH % 11.8 % (8-40); MCH 26.7 pg (25.7-33.7); MCHC 33.5 g/dl (32.0-35.9); MEAN CELL VOLUME 79.8 fl (80-96); MEAN PLT VOLUME 9.2 fl (7.5-11.1); MONO % 11.4 % (3.8-10.2); NEUT % 75.1 % (42.8-82.8); PLATELET COUNT 176 10^3/uL (134-434); RBC 5.23 M/mm3 (4.00-5.60); RDW 13.9 % (11.9-15.9)
[2023-01-01] MEDS: amLODIPine BESYLATE 5 MG TABLET (FP) PO SCH (10:22)
[2023-01-01] MEDS: ASPIRIN 81 MG CHEWABLE TABLETS PO SCH (10:22)
[2023-01-01] MEDS: CEFTRIAXONE 1 GM in DEXTROSE 5%-WATER - 50 ML IVPB SCH (10:22)
[2023-01-01 10:24] LABS: POTASSIUM 3.4 mmol/L (3.5-5.1)
[2023-01-01 10:47] LABS: TOT PROT 6.6 g/dl (6.4-8.2)
[2023-01-01 10:48] LABS: BILIRUBIN,TOTAL 1.4 mg/dL (0.2-1); CREATININE 1.2 mg/dL (0.55-1.3)
[2023-01-01 10:55] LABS: CALCIUM 8.4 mg/dL (8.5-10.1); MAGNESIUM 2.2 mg/dL (1.8-2.4)
[2023-01-01 17:36] LABS: ANISOCYTOSIS 1+; MACROCYTOSIS 0
[2023-01-01] MEDS: ATORVASTATIN CA 80 MG TABLET (FP) PO SCH (21:33)
[2023-01-02] MEDS: ACETAMINOPHEN 325 MG TABLET (FP) PO PRN (04:36)
[2023-01-02] MEDS: HEPARIN NA (PORCINE) 5,000 UNITS/ML 1ML VIAL SQ SCH ×3 (06:41→22:00)
[2023-01-02] MEDS: INSULIN SLIDING SCALE (NOVOLOG) 1 VIAL SQ SCH ×4 (06:42→22:00)
[2023-01-02] MEDS: CEFTRIAXONE 1 GM in DEXTROSE 5%-WATER - 50 ML IVPB SCH (10:04)
[2023-01-02] MEDS: ASPIRIN 81 MG CHEWABLE TABLETS PO SCH (10:04)
[2023-01-02] MEDS: amLODIPine BESYLATE 5 MG TABLET (FP) PO SCH (10:04)
[2023-01-02 11:13] LABS: HEMATOCRIT 43.6 % (35.4-49); MCH 26.2 pg (25.7-33.7); MCHC 32.2 g/dl (32.0-35.9); MEAN CELL VOLUME 81.4 fl (80-96); MEAN PLT VOLUME 9.6 fl (7.5-11.1); PLATELET COUNT 197 10^3/uL (134-434); RBC 5.35 M/mm3 (4.00-5.60); RDW 14.1 % (11.9-15.9); WHITE BLOOD COUNT 5.3 K/mm3 (4.0-10.0)
[2023-01-02 11:32] LABS: POTASSIUM 3.2 mmol/L (3.5-5.1)
[2023-01-02 11:42] LABS: CALCIUM 8.5 mg/dL (8.5-10.1)
[2023-01-02 11:43] LABS: ALBUMIN 3.2 g/dl (3.4-5.0); BLOOD UREA NITROGEN 26.1 mg/dL (7-18)
[2023-01-02 11:46] LABS: CREATININE 1.1 mg/dL (0.55-1.3); PHOSPHOROUS 3.3 mg/dL (2.5-4.9)
[2023-01-02 11:47] LABS: BILIRUBIN,TOTAL 1.1 mg/dL (0.2-1)
[2023-01-02 12:01] LABS: MAGNESIUM 2.3 mg/dL (1.8-2.4)
[2023-01-02 12:15] LABS: ANISOCYTOSIS 0; HELMET CELLS 0; HOWELL-JOLLY BODIES 0; MACROCYTOSIS 0; OVALOCYTE 0; ROULEAU 0; SICKELED CELLS 0; TARGET CELLS 0; TEAR DROP CELLS 0; TOXIC GRANULATION 0
[2023-01-02] MEDS ORDERED: POTASSIUM CHLORIDE ORAL LIQUID 20 MEQ/15 ML PO ONE (15:16)
[2023-01-02] MEDS: ATORVASTATIN CA 80 MG TABLET (FP) PO SCH (22:00)
[2023-01-03] MEDS: HEPARIN NA (PORCINE) 5,000 UNITS/ML 1ML VIAL SQ SCH ×3 (06:30→21:22)
[2023-01-03] MEDS: INSULIN SLIDING SCALE (NOVOLOG) 1 VIAL SQ SCH ×6 (06:36→21:48)
[2023-01-03] MEDS: ASPIRIN 81 MG CHEWABLE TABLETS PO SCH (10:35)
[2023-01-03] MEDS: amLODIPine BESYLATE 5 MG TABLET (FP) PO SCH (10:35)
[2023-01-03] MEDS: CEFTRIAXONE 1 GM in DEXTROSE 5%-WATER - 50 ML IVPB SCH (10:35)
[2023-01-03 11:27] LABS: HEMATOCRIT 41.7 % (35.4-49); HEMOGLOBIN 13.9 GM/dL (11.7-16.9); MCH 26.7 pg (25.7-33.7); MCHC 33.3 g/dl (32.0-35.9); MEAN CELL VOLUME 80.2 fl (80-96); MEAN PLT VOLUME 9.2 fl (7.5-11.1); PLATELET COUNT 204 10^3/uL (134-434); RDW 14.3 % (11.9-15.9); WHITE BLOOD COUNT 5.6 K/mm3 (4.0-10.0)
[2023-01-03 11:44] LABS: POTASSIUM 3.7 mmol/L (3.5-5.1)
[2023-01-03 12:16] LABS: ANISOCYTOSIS 0; HELMET CELLS 0; HOWELL-JOLLY BODIES 0; MACROCYTOSIS 0; OVALOCYTE 0; ROULEAU 0; SICKELED CELLS 0; TARGET CELLS 0; TEAR DROP CELLS 0; TOXIC GRANULATION 0
[2023-01-03 12:18] LABS: BLOOD UREA NITROGEN 24.3 mg/dL (7-18)
[2023-01-03 12:20] LABS: CALCIUM 8.5 mg/dL (8.5-10.1)
[2023-01-03 12:21] LABS: ALBUMIN 3.2 g/dl (3.4-5.0)
[2023-01-03 12:23] LABS: BILIRUBIN,TOTAL 1.1 mg/dL (0.2-1); TOT PROT 6.8 g/dl (6.4-8.2)
[2023-01-03] MEDS ORDERED: INSULIN (NOVOLOG) ASPART 100 UNITS/ML 10ML VIAL ONE (21:01)
[2023-01-03] MEDS: ATORVASTATIN CA 80 MG TABLET (FP) PO SCH (21:22)
[2023-01-04] MEDS ORDERED: INSULIN (NOVOLOG) ASPART 100 UNITS/ML 10ML VIAL ONE (06:09)
[2023-01-04] MEDS: HEPARIN NA (PORCINE) 5,000 UNITS/ML 1ML VIAL SQ SCH ×3 (06:12→22:12)
[2023-01-04] MEDS: INSULIN SLIDING SCALE (NOVOLOG) 1 VIAL SQ SCH ×4 (06:15→23:12)
[2023-01-04] MEDS: CEFTRIAXONE 1 GM in DEXTROSE 5%-WATER - 50 ML IVPB SCH (09:08)
[2023-01-04] MEDS: amLODIPine BESYLATE 5 MG TABLET (FP) PO SCH (09:08)
[2023-01-04] MEDS: ASPIRIN 81 MG CHEWABLE TABLETS PO SCH (09:08)
[2023-01-04 09:58] LABS: BASO % 0.5 % (0-2.0); EOS % 3.3 % (0-4.5); HEMATOCRIT 41.9 % (35.4-49); HEMOGLOBIN 13.5 GM/dL (11.7-16.9); LYMPH % 24.3 % (8-40); MCH 26.3 pg (25.7-33.7); MCHC 32.3 g/dl (32.0-35.9); MEAN CELL VOLUME 81.5 fl (80-96); MEAN PLT VOLUME 9.4 fl (7.5-11.1); MONO % 14.2 % (3.8-10.2); NEUT % 57.7 % (42.8-82.8); PLATELET COUNT 222 10^3/uL (134-434); RBC 5.14 M/mm3 (4.00-5.60); WHITE BLOOD COUNT 5.7 K/mm3 (4.0-10.0)
[2023-01-04 10:36] LABS: POTASSIUM 3.8 mmol/L (3.5-5.1)
[2023-01-04 10:55] LABS: ALBUMIN 3.2 g/dl (3.4-5.0); BLOOD UREA NITROGEN 21.8 mg/dL (7-18); CALCIUM 8.4 mg/dL (8.5-10.1)
[2023-01-04 10:57] LABS: TOT PROT 6.6 g/dl (6.4-8.2)
[2023-01-04 10:58] LABS: BILIRUBIN,TOTAL 0.5 mg/dL (0.2-1)
[2023-01-04] MEDS: ATORVASTATIN CA 80 MG TABLET (FP) PO SCH (22:13)
[2023-01-05] MEDS: HEPARIN NA (PORCINE) 5,000 UNITS/ML 1ML VIAL SQ SCH ×2 (05:34→13:07)
[2023-01-05] MEDS: INSULIN SLIDING SCALE (NOVOLOG) 1 VIAL SQ SCH ×3 (06:43→16:59)
[2023-01-05] MEDS: ASPIRIN 81 MG CHEWABLE TABLETS PO SCH (09:09)
[2023-01-05] MEDS: amLODIPine BESYLATE 5 MG TABLET (FP) PO SCH (09:10)
[2023-01-05 10:17] LABS: BASO % 0.2 % (0-2.0); EOS % 2.1 % (0-4.5); HEMATOCRIT 45.2 % (35.4-49); HEMOGLOBIN 14.4 GM/dL (11.7-16.9); LYMPH % 22.5 % (8-40); MCH 26.1 pg (25.7-33.7); MCHC 31.8 g/dl (32.0-35.9); MEAN CELL VOLUME 82.1 fl (80-96); MEAN PLT VOLUME 9.5 fl (7.5-11.1); NEUT % 66.2 % (42.8-82.8); PLATELET COUNT 234 10^3/uL (134-434); RDW 14.1 % (11.9-15.9)
[2023-01-05 10:34] LABS: ALBUMIN 3.3 g/dl (3.4-5.0); CALCIUM 9.1 mg/dL (8.5-10.1)
[2023-01-05 10:37] LABS: BILIRUBIN,TOTAL 0.7 mg/dL (0.2-1); TOT PROT 7.4 g/dl (6.4-8.2)
[2023-01-05 14:55] VITALS: BP 122/69; PULSE 67; RESP 18; TEMP 98.4
== END 2023-01-05 17:30 | disposition home or self-care (01) | DRG 871 ==
LOC: JER 14:39 → INTOOBSV 20:51 → JERBED 20:51 → OBSVTOIN 12-31 14:06 → J6S 12-31 16:46
PROVIDERS: ADMIT Internal Medicine; ATTEND Internal Medicine
DX: A41.51 Sepsis due to Escherichia coli [E. coli] (principal); G93.41 Metabolic encephalopathy; N17.9 Acute kidney failure, unspecified; G81.91 Hemiplegia, unspecified affecting right dominant side; I10 Essential (primary) hypertension; E11.9 Type 2 diabetes mellitus without complications; J44.9 Chronic obstructive pulmonary disease, unspecified; F03.90 Unspecified dementia, unspecified severity, without behavioral disturbance, psychotic disturbance, mood disturbance, and anxiety; N40.0 Benign prostatic hyperplasia without lower urinary tract symptoms; E80.6 Other disorders of bilirubin metabolism; K80.20 Calculus of gallbladder without cholecystitis without obstruction; E87.6 Hypokalemia; E86.0 Dehydration; Z86.718 Personal history of other venous thrombosis and embolism
CPT/HCPCS: 36415; 70450-TC; 71045-TC-FY; 76705-TC; 80053; 81003; 82248; 82962; 83036; 83735; 84100; 84484; 85025; 85027; 85610; 85730; 87040; 87086; 87186; 93005; 93010; 97116-GP; 97162-GP; 99285-25; G0378; J1644

== ENCOUNTER 2023-01-27 15:00 | Emergency (ER) | payer OTHER ==
[2023-01-27 15:15] VITALS: BP 157/96; PULSE 95; RESP 18; TEMP 98.1; BMI 32.1
== END 2023-01-27 15:52 | disposition home or self-care (01) ==
LOC: JER 15:00
DX: R10.11 Right upper quadrant pain (principal); K80.20 Calculus of gallbladder without cholecystitis without obstruction
CPT/HCPCS: 99282-25

== ENCOUNTER 2023-04-11 11:45 | Inpatient (IN) | payer OTHER ==
[2023-04-11] MEDS ORDERED: ACETAMINOPHEN 1000 MG/100 ML BAG IVPB ONE (12:30)
[2023-04-11] MEDS ORDERED: SODIUM CHLORIDE 0.9% 1000 ML INFUS.BAG IV ONE (12:30)
[2023-04-11] MEDS ORDERED: ACETAMINOPHEN INJECTION 100 ML IVPB ONE (12:43)
[2023-04-11 13:38] LABS: BASO % 0.3 % (0-2.0); EOS % 1.4 % (0-4.5); HEMATOCRIT 45.9 % (35.4-49); LYMPH % 23.3 % (8-40); MCH 27.1 pg (25.7-33.7); MCHC 32.7 g/dl (32.0-35.9); MEAN CELL VOLUME 82.7 fl (80-96); MEAN PLT VOLUME 9.1 fl (7.5-11.1); MONO % 9.8 % (3.8-10.2); NEUT % 65.2 % (42.8-82.8); PLATELET COUNT 273 10^3/uL (134-434); RBC 5.55 M/mm3 (4.00-5.60); RDW 14.6 % (11.9-15.9); WHITE BLOOD COUNT 7.4 K/mm3 (4.0-10.0)
[2023-04-11 13:42] LABS: EPI CELLS 1 /uL (0-25.1); HYALINE CASTS 0 /uL (0-3.1); URINE APPEARANCE CLEAR; URINE BACTERIA 4741 /uL (0-1359); URINE BILIRUBIN NEGATIVE (NEGATIVE); URINE COLOR YELLOW; URINE GLUCOSE (UA) NEGATIVE (NEGATIVE); URINE KETONE NEGATIVE (NEGATIVE); URINE LEUK ESTERASE 2+ (NEGATIVE); URINE NITRITE NEGATIVE (NEGATIVE); URINE PROTEIN NEGATIVE (NEGATIVE); URINE RBC 516 /uL (0-23.9); URINE WBC 158 /uL (0-25.8)
[2023-04-11 13:59] LABS: POTASSIUM 4.4 mmol/L (3.5-5.1)
[2023-04-11 14:01] LABS: CALCIUM 9.3 mg/dL (8.5-10.1)
[2023-04-11 14:02] LABS: ALBUMIN 3.9 g/dl (3.4-5.0); BLOOD UREA NITROGEN 16.2 mg/dL (7-18)
[2023-04-11 14:06] LABS: BILIRUBIN,TOTAL 1.6 mg/dL (0.2-1); TOT PROT 7.8 g/dl (6.4-8.2)
[2023-04-11 14:12] LABS: CREATININE 1.1 mg/dL (0.55-1.3)
[2023-04-11] MEDS ORDERED: CEFTRIAXONE 1 GM/50 ML BAG ONE (14:34)
[2023-04-11 17:27] LABS: CHLORIDE 103 mmol/L (98-107); SODIUM 136 mmol/L (136-145)
[2023-04-11 17:29] LABS: CALCIUM 8.6 mg/dL (8.5-10.1)
[2023-04-11 17:30] LABS: BLOOD UREA NITROGEN 17.3 mg/dL (7-18); CO2 27 mmol/L (21-32); GLUCOSE,RANDOM 120 mg/dL (74-106)
[2023-04-11 17:33] LABS: CREATININE 1.3 mg/dL (0.55-1.3)
[2023-04-11 17:37] LABS: ANION GAP 6 mmol/L (4-13); POTASSIUM 7.6 mmol/L (3.5-5.1)
[2023-04-11 22:38] LABS: ALBUMIN 3.6 g/dl (3.4-5.0)
[2023-04-11 22:41] LABS: BILIRUBIN,DIRECT 0.1 mg/dL (0.0-0.2); SGOT/AST 88 U/L (15-37)
[2023-04-11 22:43] LABS: BILIRUBIN,TOTAL 1.3 mg/dL (0.2-1); TOT PROT 7.7 g/dl (6.4-8.2)
[2023-04-11 22:44] LABS: ALK PHOS 77 U/L (45-117)
[2023-04-11 22:45] LABS: SGPT/ALT 37 U/L (13-61)
[2023-04-12 01:48] LABS: CHLORIDE 104 mmol/L (98-107); SODIUM 128 mmol/L (136-145)
[2023-04-12 01:49] LABS: CALCIUM 8.2 mg/dL (8.5-10.1)
[2023-04-12 01:50] LABS: BLOOD UREA NITROGEN 14.8 mg/dL (7-18); CO2 26 mmol/L (21-32); GLUCOSE,RANDOM 76 mg/dL (74-106)
[2023-04-12 01:53] LABS: CREATININE 1.1 mg/dL (0.55-1.3)
[2023-04-12 02:00] LABS: ANION GAP -2 mmol/L (4-13); POTASSIUM > 10.0 mmol/L (3.5-5.1)
[2023-04-12 03:29] LABS: POTASSIUM 3.6 mmol/L (3.5-5.1)
[2023-04-12 03:31] LABS: CALCIUM 8.8 mg/dL (8.5-10.1)
[2023-04-12 03:32] LABS: BLOOD UREA NITROGEN 15.6 mg/dL (7-18)
[2023-04-12] MEDS: INSULIN SLIDING SCALE (NOVOLOG) 1 VIAL SQ SCH ×4 (08:05→21:42)
[2023-04-12 08:56] LABS: HEMATOCRIT 42.3 % (35.4-49); HEMOGLOBIN 13.8 GM/dL (11.7-16.9); MCHC 32.7 g/dl (32.0-35.9); MEAN CELL VOLUME 82.3 fl (80-96); MEAN PLT VOLUME 8.8 fl (7.5-11.1); PLATELET COUNT 233 10^3/uL (134-434); RBC 5.14 M/mm3 (4.00-5.60); RDW 14.8 % (11.9-15.9); WHITE BLOOD COUNT 7.7 K/mm3 (4.0-10.0)
[2023-04-12] MEDS ORDERED: CEFTRIAXONE 1 GM/50 ML BAG ONE (08:57)
[2023-04-12 09:08] LABS: POTASSIUM 3.8 mmol/L (3.5-5.1)
[2023-04-12] MEDS: amLODIPine BESYLATE 5 MG TABLET (FP) PO SCH (09:11)
[2023-04-12] MEDS: CEFTRIAXONE 1 GM in DEXTROSE 5%-WATER - 50 ML IVPB SCH (09:11)
[2023-04-12] MEDS: TAMSULOSIN HCL 0.4 MG CAP PO SCH (09:11)
[2023-04-12 09:13] LABS: BLOOD UREA NITROGEN 15.8 mg/dL (7-18); CALCIUM 8.8 mg/dL (8.5-10.1)
[2023-04-12 09:16] LABS: CREATININE 0.9 mg/dL (0.55-1.3)
[2023-04-12] MEDS ORDERED: ATORVASTATIN CA 80 MG TABLET (FP) ONE (21:38)
[2023-04-12] MEDS: ATORVASTATIN CA 80 MG TABLET (FP) PO SCH (21:38)
[2023-04-13] MEDS: INSULIN SLIDING SCALE (NOVOLOG) 1 VIAL SQ SCH ×4 (08:01→21:48)
[2023-04-13 08:35] VITALS: BMI 28.6
[2023-04-13] MEDS: TAMSULOSIN HCL 0.4 MG CAP PO SCH (08:35)
[2023-04-13] MEDS: CEFTRIAXONE 1 GM in DEXTROSE 5%-WATER - 50 ML IVPB SCH (10:37)
[2023-04-13] MEDS: amLODIPine BESYLATE 5 MG TABLET (FP) PO SCH (10:37)
[2023-04-13] MEDS ORDERED: MEROPENEM 1 GM in DEXTROSE 5%-WATER 100 ML IVPB ONE (11:36)
[2023-04-13] MEDS: ATORVASTATIN CA 80 MG TABLET (FP) PO SCH (21:48)
[2023-04-14] MEDS: INSULIN SLIDING SCALE (NOVOLOG) 1 VIAL SQ SCH ×4 (07:08→22:44)
[2023-04-14 10:10] LABS: BASO % 0.4 % (0-2.0); EOS % 2.2 % (0-4.5); HEMOGLOBIN 14.6 GM/dL (11.7-16.9); LYMPH % 20.3 % (8-40); MCH 26.3 pg (25.7-33.7); MCHC 32.4 g/dl (32.0-35.9); MEAN CELL VOLUME 81.3 fl (80-96); MEAN PLT VOLUME 8.9 fl (7.5-11.1); MONO % 7.5 % (3.8-10.2); NEUT % 69.6 % (42.8-82.8); PLATELET COUNT 249 10^3/uL (134-434); RBC 5.53 M/mm3 (4.00-5.60); RDW 14.5 % (11.9-15.9)
[2023-04-14] MEDS: TAMSULOSIN HCL 0.4 MG CAP PO SCH (10:17)
[2023-04-14] MEDS: MEROPENEM 1 GM in DEXTROSE 5%-WATER 100 ML IVPB SCH ×2 (10:17→17:37)
[2023-04-14] MEDS: amLODIPine BESYLATE 5 MG TABLET (FP) PO SCH (10:17)
[2023-04-14] MEDS: ATORVASTATIN CA 80 MG TABLET (FP) PO SCH (22:43)
[2023-04-14 23:29] VITALS: RESP 18
[2023-04-15] MEDS: MEROPENEM 1 GM in DEXTROSE 5%-WATER 100 ML IVPB SCH ×3 (02:30→17:03)
[2023-04-15] MEDS: INSULIN SLIDING SCALE (NOVOLOG) 1 VIAL SQ SCH ×4 (07:04→22:12)
[2023-04-15 09:10] LABS: BASO % 0.3 % (0-2.0); EOS % 2.3 % (0-4.5); HEMATOCRIT 42.6 % (35.4-49); HEMOGLOBIN 13.9 GM/dL (11.7-16.9); LYMPH % 23.4 % (8-40); MCH 26.8 pg (25.7-33.7); MCHC 32.7 g/dl (32.0-35.9); MEAN CELL VOLUME 81.8 fl (80-96); MEAN PLT VOLUME 8.8 fl (7.5-11.1); PLATELET COUNT 214 10^3/uL (134-434); RBC 5.21 M/mm3 (4.00-5.60); RDW 14.6 % (11.9-15.9); WHITE BLOOD COUNT 7.9 K/mm3 (4.0-10.0)
[2023-04-15] MEDS: TAMSULOSIN HCL 0.4 MG CAP PO SCH (09:11)
[2023-04-15] MEDS: amLODIPine BESYLATE 5 MG TABLET (FP) PO SCH (09:11)
[2023-04-15 09:32] LABS: POTASSIUM 3.8 mmol/L (3.5-5.1)
[2023-04-15 09:34] LABS: BLOOD UREA NITROGEN 16.5 mg/dL (7-18); CALCIUM 8.8 mg/dL (8.5-10.1)
[2023-04-15] MEDS: ATORVASTATIN CA 80 MG TABLET (FP) PO SCH (22:12)
[2023-04-16] MEDS: INSULIN SLIDING SCALE (NOVOLOG) 1 VIAL SQ SCH ×2 (06:18→11:59)
[2023-04-16 07:06] VITALS: BP 116/79; PULSE 89; TEMP 98.1
[2023-04-16 08:57] LABS: BASO % 0.3 % (0-2.0); EOS % 2.2 % (0-4.5); HEMATOCRIT 44.6 % (35.4-49); HEMOGLOBIN 14.8 GM/dL (11.7-16.9); LYMPH % 25.2 % (8-40); MCH 27.2 pg (25.7-33.7); MCHC 33.2 g/dl (32.0-35.9); MEAN CELL VOLUME 82.1 fl (80-96); MEAN PLT VOLUME 8.8 fl (7.5-11.1); MONO % 8.4 % (3.8-10.2); NEUT % 63.9 % (42.8-82.8); PLATELET COUNT 236 10^3/uL (134-434); RBC 5.44 M/mm3 (4.00-5.60); RDW 14.5 % (11.9-15.9); WHITE BLOOD COUNT 8.6 K/mm3 (4.0-10.0)
[2023-04-16] MEDS: TAMSULOSIN HCL 0.4 MG CAP PO SCH (09:05)
[2023-04-16] MEDS: amLODIPine BESYLATE 5 MG TABLET (FP) PO SCH (09:05)
[2023-04-16] MEDS: ERTAPENEM SODIUM 1 GM in SODIUM CHLORIDE 50 ML IVPB SCH ×2 (09:05→11:55)
[2023-04-16 09:14] LABS: POTASSIUM 3.9 mmol/L (3.5-5.1)
[2023-04-16 09:16] LABS: CALCIUM 9.5 mg/dL (8.5-10.1)
[2023-04-16 09:17] LABS: ALBUMIN 3.5 g/dl (3.4-5.0); BLOOD UREA NITROGEN 16.1 mg/dL (7-18)
[2023-04-16 09:20] LABS: CREATININE 1.1 mg/dL (0.55-1.3)
[2023-04-16 09:22] LABS: BILIRUBIN,TOTAL 1.5 mg/dL (0.2-1)
== END 2023-04-16 13:52 | disposition home or self-care (01) | DRG 690 ==
LOC: JER 11:45 → JERBED 18:06 → J5S 04-12 22:41 → J8W 04-13 15:39
PROVIDERS: ADMIT Internal Medicine; ATTEND Nurse Practitioner Family
PROC: 02HV33Z Insertion of Infusion Device into Superior Vena Cava, Percutaneous Approach (ICD-10-PCS; principal; 2023-04-16)
PROC: B548ZZA Ultrasonography of Superior Vena Cava, Guidance (ICD-10-PCS; 2023-04-16)
DX: N30.91 Cystitis, unspecified with hematuria (principal); Z16.12 Extended spectrum beta lactamase (ESBL) resistance; N40.1 Benign prostatic hyperplasia with lower urinary tract symptoms; I10 Essential (primary) hypertension; I25.10 Atherosclerotic heart disease of native coronary artery without angina pectoris; I48.91 Unspecified atrial fibrillation; E11.9 Type 2 diabetes mellitus without complications; J44.9 Chronic obstructive pulmonary disease, unspecified; F03.90 Unspecified dementia, unspecified severity, without behavioral disturbance, psychotic disturbance, mood disturbance, and anxiety; E78.5 Hyperlipidemia, unspecified; R31.0 Gross hematuria; N28.1 Cyst of kidney, acquired; B96.20 Unspecified Escherichia coli [E. coli] as the cause of diseases classified elsewhere
CPT/HCPCS: 36415; 36569; 74176-TC; 74181-TC; 77001-TC-FY; 80048; 80053; 80076; 81003; 82962; 85025; 85027; 87040; 87086; 87186; 93005; 93010; 97116-GP; 97162-GP; 99285-25; C1751

== ENCOUNTER 2023-04-17 12:18 | Day surgery (SDC) | payer OTHER ==
[2023-04-17] MEDS ORDERED: ERTAPENEM SODIUM 1 GM in SODIUM CHLORIDE 50 ML IVPB ONE (13:00)
[2023-04-17 14:13] VITALS: BP 130/82; PULSE 86; RESP 20; TEMP 98.4
== END 2023-04-17 13:57 | disposition home or self-care (01) ==
LOC: FINJECTION 12:18 → FM/S 12:21 → FINJECTION 13:57
PROVIDERS: ATTEND Internal Medicine Infectious Disease
DX: N39.0 Urinary tract infection, site not specified (principal)
CPT/HCPCS: 96365

== ENCOUNTER 2023-04-18 13:09 | Day surgery (SDC) | payer OTHER ==
[2023-04-18] MEDS ORDERED: ERTAPENEM SODIUM 1 GM in SODIUM CHLORIDE 50 ML IVPB ONE (13:45)
[2023-04-18 14:51] VITALS: BP 127/78; PULSE 67; RESP 16; TEMP 98.1
== END 2023-04-18 14:51 | disposition home or self-care (01) ==
LOC: FINJECTION 13:09 → FM/S 13:21 → FINJECTION 14:51
PROVIDERS: ATTEND Internal Medicine Infectious Disease
DX: N39.0 Urinary tract infection, site not specified (principal)
CPT/HCPCS: 96365

== ENCOUNTER 2023-04-19 12:37 | Day surgery (SDC) | payer OTHER ==
[2023-04-19] MEDS ORDERED: ERTAPENEM SODIUM 1 GM in SODIUM CHLORIDE 50 ML IVPB SCH (13:45)
[2023-04-19 14:37] VITALS: BP 129/88; PULSE 80; RESP 20; TEMP 98.3
== END 2023-04-19 15:00 | disposition home or self-care (01) ==
LOC: FINJECTION 12:37 → FM/S 13:19 → FINJECTION 15:00
PROVIDERS: ATTEND Internal Medicine Infectious Disease
DX: N39.0 Urinary tract infection, site not specified (principal)
CPT/HCPCS: 96365

== ENCOUNTER 2023-04-20 13:03 | Day surgery (SDC) | payer OTHER ==
[2023-04-20] MEDS ORDERED: ERTAPENEM SODIUM 1 GM in SODIUM CHLORIDE 50 ML IVPB ONE (13:30)
[2023-04-20 14:25] VITALS: BP 115/70; PULSE 95; RESP 18; TEMP 97.5
== END 2023-04-20 14:26 | disposition home or self-care (01) ==
LOC: FINJECTION 13:03 → FM/S 13:04 → FINJECTION 14:26
PROVIDERS: ATTEND Internal Medicine Infectious Disease
DX: N39.0 Urinary tract infection, site not specified (principal)
CPT/HCPCS: 96365

== ENCOUNTER 2023-04-21 11:18 | Day surgery (SDC) | payer OTHER ==
[2023-04-21] MEDS ORDERED: ERTAPENEM SODIUM 1 GM in SODIUM CHLORIDE 50 ML IVPB ONE (11:45)
[2023-04-21 12:34] VITALS: BP 130/80; PULSE 70; RESP 16; TEMP 98.4
== END 2023-04-21 12:43 | disposition home or self-care (01) ==
LOC: FM/S 11:18 → FINJECTION 11:18
PROVIDERS: ATTEND Internal Medicine Infectious Disease
DX: N39.0 Urinary tract infection, site not specified (principal)
CPT/HCPCS: 96365

== ENCOUNTER 2023-04-22 11:37 | Day surgery (SDC) | payer OTHER ==
[2023-04-22] MEDS ORDERED: ERTAPENEM SODIUM 1 GM in SODIUM CHLORIDE 50 ML IVPB ONE (12:00)
[2023-04-22 16:09] VITALS: BP 115/80; PULSE 78; RESP 16; TEMP 98.1
== END 2023-04-22 13:13 | disposition home or self-care (01) ==
LOC: FM/S 11:37 → FINJECTION 11:37
PROVIDERS: ATTEND Internal Medicine Infectious Disease
DX: N39.0 Urinary tract infection, site not specified (principal)
CPT/HCPCS: 96365

== ENCOUNTER 2023-04-23 13:01 | Day surgery (SDC) | payer OTHER ==
[2023-04-23] MEDS ORDERED: ERTAPENEM SODIUM 1 GM in SODIUM CHLORIDE 50 ML IVPB ONE (13:15)
[2023-04-23 14:18] VITALS: BP 110/80; PULSE 69; RESP 16; TEMP 98.2
== END 2023-04-23 14:18 | disposition home or self-care (01) ==
LOC: FINJECTION 13:01 → FM/S 13:04 → FINJECTION 14:18
PROVIDERS: ATTEND Internal Medicine Infectious Disease
DX: N39.0 Urinary tract infection, site not specified (principal)
CPT/HCPCS: 96365

== ENCOUNTER 2023-04-24 12:44 | Day surgery (SDC) | payer OTHER ==
[2023-04-24] MEDS ORDERED: ERTAPENEM SODIUM 1 GM in SODIUM CHLORIDE 50 ML IVPB ONE (13:30)
[2023-04-24 13:43] VITALS: PULSE 89; RESP 18; TEMP 98.1
[2023-04-24 13:48] VITALS: BP 116/79; BMI 28.0
== END 2023-04-24 14:27 | disposition home or self-care (01) ==
LOC: FINJECTION 12:44 → FM/S 12:46 → FINJECTION 14:27
PROVIDERS: ATTEND Internal Medicine Infectious Disease
DX: N39.0 Urinary tract infection, site not specified (principal)
CPT/HCPCS: 96365

== ENCOUNTER 2023-06-06 11:14 | Inpatient (IN) | payer OTHER ==
[2023-06-06 13:38] LABS: BASO % 0.2 % (0-2.0); EOS % 0.6 % (0-4.5); HEMATOCRIT 45.8 % (35.4-49); HEMOGLOBIN 15.2 GM/dL (11.7-16.9); LYMPH % 10.5 % (8-40); MCH 26.8 pg (25.7-33.7); MCHC 33.3 g/dl (32.0-35.9); MEAN CELL VOLUME 80.5 fl (80-96); MEAN PLT VOLUME 8.6 fl (7.5-11.1); MONO % 7.8 % (3.8-10.2); NEUT % 80.9 % (42.8-82.8); PLATELET COUNT 219 10^3/uL (134-434); RBC 5.69 M/mm3 (4.00-5.60); RDW 14.8 % (11.9-15.9); WHITE BLOOD COUNT 6.7 K/mm3 (4.0-10.0)
[2023-06-06 13:45] LABS: INR 1.19 (0.83-1.09); PROTHROMBIN TIME (PATIENT) 13.8 SEC (9.7-13.0)
[2023-06-06 13:48] LABS: ACTIVATED PTT 22.7 SECONDS (25.2-36.5)
[2023-06-06 14:15] LABS: POTASSIUM 4.2 mmol/L (3.5-5.1)
[2023-06-06 14:17] LABS: ALBUMIN 3.4 g/dl (3.4-5.0); CALCIUM 9.1 mg/dL (8.5-10.1); MAGNESIUM 2.3 mg/dL (1.8-2.4)
[2023-06-06 14:18] LABS: BLOOD UREA NITROGEN 17.9 mg/dL (7-18)
[2023-06-06 14:20] LABS: CREATININE 1.3 mg/dL (0.55-1.3)
[2023-06-06 14:22] LABS: BILIRUBIN,TOTAL 2.2 mg/dL (0.2-1); TOT PROT 7.4 g/dl (6.4-8.2)
[2023-06-06 14:47] LABS: EPI CELLS 7 /uL (0-25.1); HYALINE CASTS 4 /uL (0-3.1); PH,URINE 5.5 (5.0-8.0); URINE APPEARANCE CLOUDY; URINE BACTERIA 2871 /uL (0-1359); URINE BILIRUBIN 1+ (NEGATIVE); URINE COLOR DK YELLOW; URINE GLUCOSE (UA) NEGATIVE (NEGATIVE); URINE KETONE TRACE (NEGATIVE); URINE LEUK ESTERASE 2+ (NEGATIVE); URINE NITRITE POSITIVE (NEGATIVE); URINE PROTEIN 2+ (NEGATIVE); URINE RBC 577 /uL (0-23.9); URINE WBC 295 /uL (0-25.8)
[2023-06-06] MEDS ORDERED: ERTAPENEM SODIUM 1 GM VIAL ONE (15:19)
[2023-06-06] MEDS: ERTAPENEM SODIUM 1 GM in SODIUM CHLORIDE 50 ML IVPB ONE (15:43)
[2023-06-06] MEDS ORDERED: amLODIPine BESYLATE 5 MG TABLET (FP) ONE (17:55)
[2023-06-06] MEDS: amLODIPine BESYLATE 5 MG TABLET (FP) PO SCH (17:58)
[2023-06-06] MEDS ORDERED: TAMSULOSIN HCL 0.4 MG CAP ONE (20:40)
[2023-06-06] MEDS ORDERED: ATORVASTATIN CA 80 MG TABLET (FP) ONE (20:40)
[2023-06-06] MEDS: TAMSULOSIN HCL 0.4 MG CAP PO SCH (21:02)
[2023-06-06] MEDS: ATORVASTATIN CA 80 MG TABLET (FP) PO SCH (21:02)
[2023-06-07 06:49] LABS: BASO % 0.3 % (0-2.0); EOS % 2.4 % (0-4.5); HEMATOCRIT 41.9 % (35.4-49); HEMOGLOBIN 14.1 GM/dL (11.7-16.9); LYMPH % 13.7 % (8-40); MCHC 33.7 g/dl (32.0-35.9); MEAN CELL VOLUME 80.2 fl (80-96); MEAN PLT VOLUME 9.1 fl (7.5-11.1); MONO % 10.3 % (3.8-10.2); NEUT % 73.3 % (42.8-82.8); PLATELET COUNT 205 10^3/uL (134-434); RBC 5.23 M/mm3 (4.00-5.60); RDW 14.3 % (11.9-15.9); WHITE BLOOD COUNT 6.4 K/mm3 (4.0-10.0)
[2023-06-07 07:00] LABS: POTASSIUM 4.1 mmol/L (3.5-5.1)
[2023-06-07 07:04] LABS: ALBUMIN 3.3 g/dl (3.4-5.0); BLOOD UREA NITROGEN 18.4 mg/dL (7-18); CALCIUM 8.5 mg/dL (8.5-10.1); INR 1.16 (0.83-1.09); MAGNESIUM 2.1 mg/dL (1.8-2.4); PROTHROMBIN TIME (PATIENT) 13.4 SEC (9.7-13.0)
[2023-06-07 07:07] LABS: ACTIVATED PTT 24.7 SECONDS (25.2-36.5); PHOSPHOROUS 3.6 mg/dL (2.5-4.9)
[2023-06-07 07:09] LABS: BILIRUBIN,TOTAL 1.5 mg/dL (0.2-1); TOT PROT 6.7 g/dl (6.4-8.2)
[2023-06-07] MEDS: VALSARTAN 80 MG TABLET PO SCH (09:15)
[2023-06-07] MEDS ORDERED: METOPROLOL TARTRATE 5 MG/5 ML VIAL IVPUSH PRN (09:37)
[2023-06-07] MEDS ORDERED: APIXABAN 5 MG TABLET ONE ×2 (09:51→21:29)
[2023-06-07] MEDS: APIXABAN 5 MG TABLET PO SCH (10:05)
[2023-06-07] MEDS ORDERED: metoPROLOL SUCCINATE 25 MG TAB.SR.24H (FP) PO ONE ×2 (14:38→21:29)
[2023-06-07] MEDS: metoPROLOL SUCCINATE 25 MG TAB.SR.24H (FP) PO ONE (14:43)
[2023-06-07] MEDS ORDERED: ATORVASTATIN CA 80 MG TABLET (FP) ONE (21:29)
[2023-06-08 06:45] LABS: BASO % 0.3 % (0-2.0); EOS % 3.7 % (0-4.5); HEMATOCRIT 46.5 % (35.4-49); HEMOGLOBIN 15.1 GM/dL (11.7-16.9); LYMPH % 21.5 % (8-40); MCH 26.4 pg (25.7-33.7); MCHC 32.6 g/dl (32.0-35.9); MEAN CELL VOLUME 80.9 fl (80-96); MEAN PLT VOLUME 9.4 fl (7.5-11.1); MONO % 12.2 % (3.8-10.2); NEUT % 62.3 % (42.8-82.8); PLATELET COUNT 228 10^3/uL (134-434); RBC 5.74 M/mm3 (4.00-5.60); RDW 14.4 % (11.9-15.9); WHITE BLOOD COUNT 6.8 K/mm3 (4.0-10.0)
[2023-06-08 07:03] LABS: POTASSIUM 4.1 mmol/L (3.5-5.1)
[2023-06-08 07:07] LABS: BLOOD UREA NITROGEN 18.3 mg/dL (7-18); CALCIUM 8.6 mg/dL (8.5-10.1)
[2023-06-08 07:08] LABS: ALBUMIN 3.2 g/dl (3.4-5.0)
[2023-06-08 07:10] LABS: CREATININE 0.9 mg/dL (0.55-1.3)
[2023-06-08 07:12] LABS: BILIRUBIN,TOTAL 1.4 mg/dL (0.2-1); TOT PROT 6.7 g/dl (6.4-8.2)
[2023-06-08] MEDS ORDERED: CEFTRIAXONE 1 GM/50 ML BAG ONE (10:16)
[2023-06-08] MEDS: metoPROLOL SUCCINATE 25 MG TAB.SR.24H (FP) PO SCH (10:24)
[2023-06-08] MEDS: CEFTRIAXONE 1 GM in DEXTROSE 5%-WATER - 50 ML IVPB SCH (10:24)
[2023-06-08 18:30] VITALS: BMI 30.3
[2023-06-09] MEDS: ERTAPENEM SODIUM 1 GM in SODIUM CHLORIDE 50 ML IVPB ONE (01:49)
[2023-06-09] MEDS: metoPROLOL SUCCINATE 25 MG TAB.SR.24H (FP) PO ONE (12:45)
[2023-06-10 06:51] LABS: BASO % 0.3 % (0-2.0); EOS % 2.8 % (0-4.5); HEMATOCRIT 45.1 % (35.4-49); HEMOGLOBIN 14.7 GM/dL (11.7-16.9); LYMPH % 24.5 % (8-40); MCH 26.3 pg (25.7-33.7); MCHC 32.7 g/dl (32.0-35.9); MEAN CELL VOLUME 80.4 fl (80-96); MEAN PLT VOLUME 9.1 fl (7.5-11.1); MONO % 11.4 % (3.8-10.2); PLATELET COUNT 284 10^3/uL (134-434); RDW 14.3 % (11.9-15.9); WHITE BLOOD COUNT 7.8 K/mm3 (4.0-10.0)
[2023-06-10 07:13] LABS: CALCIUM 8.4 mg/dL (8.5-10.1)
[2023-06-10 07:14] LABS: ALBUMIN 3.1 g/dl (3.4-5.0); BLOOD UREA NITROGEN 20.5 mg/dL (7-18)
[2023-06-10 07:18] LABS: BILIRUBIN,TOTAL 1.4 mg/dL (0.2-1); TOT PROT 6.6 g/dl (6.4-8.2)
[2023-06-10] MEDS: ERTAPENEM SODIUM 1 GM in SODIUM CHLORIDE 50 ML IVPB ONE (14:40)
[2023-06-10 21:47] VITALS: RESP 18
[2023-06-11] MEDS ORDERED: ERTAPENEM SODIUM 1 GM in SODIUM CHLORIDE 50 ML IVPB SCH (10:00)
[2023-06-11 16:39] VITALS: BP 109/95; PULSE 88; TEMP 98.1
== END 2023-06-11 17:10 | disposition home or self-care (01) | DRG 696 ==
LOC: JER 11:14 → JERBED 15:12 → J4W 06-08 14:09
PROVIDERS: ADMIT Internal Medicine; ATTEND Internal Medicine
DX: R31.9 Hematuria, unspecified (principal); I48.20 Chronic atrial fibrillation, unspecified; I69.351 Hemiplegia and hemiparesis following cerebral infarction affecting right dominant side; I10 Essential (primary) hypertension; J44.9 Chronic obstructive pulmonary disease, unspecified; N40.0 Benign prostatic hyperplasia without lower urinary tract symptoms; I69.320 Aphasia following cerebral infarction; N39.0 Urinary tract infection, site not specified
CPT/HCPCS: 36415; 70450-TC; 71045-TC-FY; 74176-TC; 80053; 81003; 83735; 84100; 84439; 84443; 85025; 85610; 85730; 87086; 87186; 93005; 93010; 94761; 97116-GP; 97161-GP; 99285-25

== ENCOUNTER 2023-08-21 08:22 | Observation (INO) | payer OTHER ==
[2023-08-21 10:21] LABS: HEMATOCRIT 42.6 % (35.4-49); HEMOGLOBIN 14.2 GM/dL (11.7-16.9); MCH 26.8 pg (25.7-33.7); MCHC 33.3 g/dl (32.0-35.9); MEAN CELL VOLUME 80.5 fl (80-96); MEAN PLT VOLUME 8.5 fl (7.5-11.1); PLATELET COUNT 182 10^3/uL (134-434); RBC 5.29 M/mm3 (4.00-5.60); RDW 15.4 % (11.9-15.9); WHITE BLOOD COUNT 13.4 K/mm3 (4.0-10.0)
[2023-08-21 10:40] LABS: POTASSIUM 3.2 mmol/L (3.5-5.1)
[2023-08-21 10:42] LABS: CALCIUM 8.9 mg/dL (8.5-10.1)
[2023-08-21 10:43] LABS: ALBUMIN 3.4 g/dl (3.4-5.0); BLOOD UREA NITROGEN 16.4 mg/dL (7-18)
[2023-08-21 10:46] LABS: CREATININE 1.4 mg/dL (0.55-1.3)
[2023-08-21 10:47] LABS: BILIRUBIN,TOTAL 3.9 mg/dL (0.2-1); TOT PROT 6.8 g/dl (6.4-8.2)
[2023-08-21 11:55] LABS: EPI CELLS 13 /uL (0-25.1); HYALINE CASTS 0 /uL (0-3.1); PH,URINE 7.5 (5.0-8.0); URINE APPEARANCE CLEAR; URINE BACTERIA 3 /uL (0-1359); URINE BILIRUBIN NEGATIVE (NEGATIVE); URINE COLOR YELLOW; URINE GLUCOSE (UA) NEGATIVE (NEGATIVE); URINE KETONE NEGATIVE (NEGATIVE); URINE LEUK ESTERASE NEGATIVE (NEGATIVE); URINE NITRITE NEGATIVE (NEGATIVE); URINE PROTEIN NEGATIVE (NEGATIVE); URINE RBC 940 /uL (0-23.9); URINE WBC 37 /uL (0-25.8)
[2023-08-21] MEDS: POTASSIUM CHLORIDE ORAL LIQUID 20 MEQ/15 ML PO ONE (12:50)
[2023-08-21] MEDS: SODIUM CHLORIDE 0.9% 500 ML INFUS.BAG IV ONE (12:50)
[2023-08-21] MEDS ORDERED: POTASSIUM CHLORIDE ORAL LIQUID 20 MEQ/15 ML ONE (12:55)
[2023-08-21 13:55] LABS: BILIRUBIN,DIRECT 0.3 mg/dL (0.0-0.2)
[2023-08-21 18:10] LABS: MAGNESIUM 1.7 mg/dL (1.8-2.4)
[2023-08-21 18:13] LABS: PHOSPHOROUS 1.5 mg/dL (2.5-4.9)
[2023-08-21] MEDS ORDERED: NAPH,MB-DB/K PH,MBDB POWDER PACKET ONE ×3 (18:38→21:35)
[2023-08-21] MEDS: NAPH,MB-DB/K PH,MBDB POWDER PACKET PO SCH (18:43)
[2023-08-21] MEDS: MAGNESIUM SULF 50% (8.12 MEQ/2 ML-1 GM VIAL) IVPB ONE (18:43)
[2023-08-21] MEDS: SODIUM CHLORIDE 1,000 ML IV SCH (20:25)
[2023-08-21] MEDS ORDERED: ATORVASTATIN CA 80 MG TABLET (FP) ONE (21:35)
[2023-08-21] MEDS ORDERED: DONEPEZIL HCL 5 MG TABLET (FP) ONE (21:35)
[2023-08-21] MEDS: DONEPEZIL HCL 5 MG TABLET (FP) PO SCH (21:46)
[2023-08-21] MEDS: ATORVASTATIN CA 80 MG TABLET (FP) PO SCH (21:46)
[2023-08-22 03:27] VITALS: BMI 28.0
[2023-08-22 07:50] LABS: BASO % 0.3 % (0-2.0); EOS % 0.5 % (0-4.5); HEMATOCRIT 42.7 % (35.4-49); HEMOGLOBIN 13.9 GM/dL (11.7-16.9); MCH 26.3 pg (25.7-33.7); MCHC 32.5 g/dl (32.0-35.9); MEAN PLT VOLUME 9.1 fl (7.5-11.1); NEUT % 86.2 % (42.8-82.8); PLATELET COUNT 167 10^3/uL (134-434); RBC 5.27 M/mm3 (4.00-5.60); RDW 15.4 % (11.9-15.9); WHITE BLOOD COUNT 8.6 K/mm3 (4.0-10.0)
[2023-08-22 07:57] LABS: POTASSIUM 3.3 mmol/L (3.5-5.1)
[2023-08-22 08:04] LABS: ALBUMIN 2.9 g/dl (3.4-5.0); CALCIUM 8.3 mg/dL (8.5-10.1)
[2023-08-22 08:05] LABS: BLOOD UREA NITROGEN 14.5 mg/dL (7-18); MAGNESIUM 2.1 mg/dL (1.8-2.4)
[2023-08-22 08:07] LABS: PHOSPHOROUS 2.7 mg/dL (2.5-4.9)
[2023-08-22 08:08] LABS: BILIRUBIN,TOTAL 3.8 mg/dL (0.2-1)
[2023-08-22 08:09] LABS: TOT PROT 6.3 g/dl (6.4-8.2)
[2023-08-22] MEDS: POTASSIUM CHLORIDE ORAL LIQUID 20 MEQ/15 ML PO ONE (09:30)
[2023-08-22] MEDS: FINASTERIDE 5 MG TABLET (FP) PO SCH (09:31)
[2023-08-22] MEDS: TAMSULOSIN HCL 0.4 MG CAP PO SCH (09:31)
[2023-08-22 16:23] VITALS: BP 117/94; PULSE 92; RESP 18; TEMP 98.8
== END 2023-08-22 16:32 | disposition home or self-care (01) ==
LOC: JER 08:22 → JERBED 16:09 → J8W 23:42
PROVIDERS: ADMIT Internal Medicine; ATTEND Nurse Practitioner Family
PROC: 3E033GC Introduction of Other Therapeutic Substance into Peripheral Vein, Percutaneous Approach (ICD-10-PCS; principal; 2023-08-21)
PROC: 3E0337Z Introduction of Electrolytic and Water Balance Substance into Peripheral Vein, Percutaneous Approach (ICD-10-PCS; 2023-08-21)
DX: N40.0 Benign prostatic hyperplasia without lower urinary tract symptoms (principal); R31.9 Hematuria, unspecified; I48.91 Unspecified atrial fibrillation; I10 Essential (primary) hypertension; I69.820 Aphasia following other cerebrovascular disease; E78.5 Hyperlipidemia, unspecified; Z91.148 Patient's other noncompliance with medication regimen for other reason
CPT/HCPCS: 36415; 74177-TC; 80053; 81003; 82248; 83010; 83615; 83690; 83735; 84100; 85025; 85027; 86850; 86900; 86901; 87086; 93005; 93010; 96361; 96374; 99285-25; G0378

== ENCOUNTER 2024-05-20 10:52 | Emergency (ER) | payer OTHER ==
[2024-05-20 11:10] VITALS: RESP 20; BMI 34.3
[2024-05-20] MEDS: ALBUTEROL SO4 2.5/IPRATROPIUM 0.5 INH SOL 3 ML VIAL.NEB. NEB SCH (12:29)
[2024-05-20] MEDS ORDERED: ALBUTEROL SO4 2.5/IPRATROPIUM 0.5 INH SOL 3 ML VIAL.NEB. NEB ONE (12:31)
[2024-05-20 12:59] LABS: BASO % 0.4 % (0-2.0); EOS % 3.7 % (0-4.5); HEMATOCRIT 46.5 % (35.4-49); HEMOGLOBIN 14.9 GM/dL (11.7-16.9); MCH 26.6 pg (25.7-33.7); MCHC 32.1 g/dl (32.0-35.9); MEAN CELL VOLUME 82.8 fl (80-96); MEAN PLT VOLUME 8.9 fl (7.5-11.1); MONO % 11.5 % (3.8-10.2); NEUT % 58.4 % (42.8-82.8); PLATELET COUNT 222 10^3/uL (134-434); RBC 5.61 M/mm3 (4.00-5.60); RDW 14.6 % (11.9-15.9)
[2024-05-20 13:15] LABS: ALBUMIN 3.7 g/dl (3.4-5.0); CALCIUM 9.1 mg/dL (8.5-10.1)
[2024-05-20 13:17] LABS: BLOOD UREA NITROGEN 9.7 mg/dL (7-18)
[2024-05-20 13:20] LABS: CREATININE 1.1 mg/dL (0.55-1.3)
[2024-05-20 13:21] LABS: BILIRUBIN,TOTAL 1.5 mg/dL (0.2-1); TOT PROT 7.5 g/dl (6.4-8.2)
[2024-05-20 14:14] VITALS: BP 121/86; PULSE 89; TEMP 98.8
[2024-05-20] MEDS: ALBUTEROL SO4 0.083% IH SOL 2.5 MG/3 ML VIAL.NEB. NEB SCH (14:28)
== END 2024-05-20 16:35 | disposition home or self-care (01) ==
LOC: JER 10:52
PROC: 3E0F7GC Introduction of Other Therapeutic Substance into Respiratory Tract, Via Natural or Artificial Opening (ICD-10-PCS; principal; 2024-05-20)
PROC: 3E0F7GC Introduction of Other Therapeutic Substance into Respiratory Tract, Via Natural or Artificial Opening (ICD-10-PCS; 2024-05-20)
DX: R07.89 Other chest pain (principal); R06.2 Wheezing; I10 Essential (primary) hypertension; Z20.822 Contact with and (suspected) exposure to COVID-19
CPT/HCPCS: 0241U-QW; 36415; 71045-TC-FY; 80053; 84484; 85025; 93005; 93010; 99285-25